=== PATIENT | male | born 1980 | race Caucasian/White ===

== ENCOUNTER 2019-06-23 10:11 | Outpatient (CLI) | payer BC, SELFPAY ==
[2019-06-23 10:40] LABS: Alanine Aminotransferase 37 U/L (4-50); Albumin Level 4.4 g/dL (3.5-5.1); Alkaline Phosphatase 106 U/L (38-126); Aspartate Amino Transferase 26 U/L (17-59); Blood Urea Nitrogen 12 mg/dL (9-20); Calcium 9.2 mg/dL (8.4-10.2); Carbon Dioxide 24 mmol/L (22-30); Chloride 104 mmol/L (98-107); Cholesterol 156 mg/dL (0-200); Estimated Glomerular Filt Rate > 60; Glucose 104 mg/dL (75-110); HDL Direct 39 mg/dL; Potassium 4.1 mmol/L (3.4-5.0); Sodium 140 mmol/L (137-145); Triglycerides 167 mg/dL (<150)
[2019-06-23 10:50] LABS: LDL Cholesterol Direct 102 mg/dL
[2019-06-25 10:05] LABS: Testosterone Total 262 ng/dL (250-1100)
== END 2019-06-23 10:12 | disposition home or self-care (01) ==
LOC: ANHLAB 10:12
PROVIDERS: PCP Internal Medicine; Visit Provider Nurse Practitioner
DX: N52.9 Male erectile dysfunction, unspecified (principal); E78.5 Hyperlipidemia, unspecified
CPT/HCPCS: 36415; 80053; 80061; 84403

== ENCOUNTER 2019-06-27 13:06 | Outpatient (CLI) | payer BC, SELFPAY ==
[2019-07-02 10:02] LABS: Testosterone Total 302 ng/dL (250-1100)
== END 2019-06-27 13:07 | disposition home or self-care (01) ==
PROVIDERS: PCP Internal Medicine; Visit Provider Nurse Practitioner
DX: R79.89 Other specified abnormal findings of blood chemistry (principal)
CPT/HCPCS: 36415; 84403

== ENCOUNTER 2019-11-19 15:08 | Outpatient (CLI) | payer MEDICAID, SELFPAY ==
[2019-11-23 11:12] LABS: Testosterone Total 173 ng/dL (250-1100)
== END 2019-11-19 15:09 | disposition home or self-care (01) ==
PROVIDERS: PCP Internal Medicine; Visit Provider Internal Medicine
DX: R68.82 Decreased libido (principal)
CPT/HCPCS: 36415; 84403

== ENCOUNTER 2020-05-11 15:28 | Observation (INO) | payer OTHER, SELFPAY ==
[2020-05-11] VITALS (15 sets, daily range): BP systolic 133–181; BP diastolic 87–125; PULSE 64–110; RESP 11–23; TEMP 36.3–37.1; O2SAT 97–99; BMI 34.0
--- NOTE | ~2020-05-11 | XR_ITS ---
XR chest 1V portable DATE: 05/11/2020 15:49 INDICATION: Upper back pain. Left anterior chest pain. History of hypertension, myocardial infarction . TECHNIQUE: Portable AP chest on 05/11/2020 at 1551 hours COMPARISON: PA and lateral chest on 01/06/2016 FINDINGS: Heart size appears within normal range. Is mild aortic unfolding. No hilar or mediastinal e nlargement is evident. No pulmonary infiltrate or consolidation, pleural effusion or pulmonary vascular congestion or pneumo thorax. IMPRESSION: No active cardiopulmonary disease Reviewed, dictated and finalized at location B. R PLUMBER
--- NOTE | ~2020-05-11 | NM_ITS ---
EXAMINATION: NM jasmin stress w perfusion DATE: 05/12/2020 11:04 INDICATION: Chest pain radiating to the left arm. TECHNIQUE: Rest images were obtained following intravenous administration of 10.3 mCi Tc99m tetrofosm in (Myoview). The patient was infused intravenously with Lexiscan (regadenoson). Then, 31.9 mCi Tc99m tetrofosmin (Myoview) was administered intravenously, and stress images were obtained. Data was ge nstructed into short axis and horizontal and vertical long axis SPECT images. Gated SPECT images were also obtained. COMPARISON: Chest CT 05/11/2020 FINDINGS: There is no definite reversible or fixed perfusion abnormality to suggest ischemia or infar ction. There is no segmental wall motion abnormality. Left ventricular ejection fraction measures > 70%. IMPRESSION: 1. No definite ischemia or infarct. 2. Normal left ventricular ejection fraction measuring >70%. Reviewed, dictated and finalized at location A. T THROWER
--- NOTE | ~2020-05-11 | CT_ITS ---
EXAMINATION: CTA chest EXAM DATE: 05/11/2020 17:09 INDICATION: Chest pain radiating to back. TECHNIQUE: Spiral CT angiogram of the chest following intravenous injection of 100 mL Omnipaque 350. Axial, coronal and sagittal images were reviewed. Coronal maximum intensity pixel images of chest r eviewed. Maximum intensity projection 3-D reconstructions of the arteries were created by the techno logist on dedicated workstation. The dose-length product (DLP) for this examination was 1002.66 mGy- cm. The exposure was tailored according to patient size (auto mA exposure control), and iterative re construction (ASIR) was used as additional dose reduction technique. There is no prior study for isaiah gallagher. FINDINGS: There is normal thoracic aortic caliber, no dissection or central pulmonary emboli. Mild ap ical paraseptal emphysema. The lungs are clear. There are no pleural or pericardial effusions. Tr acheobronchial tree is patent. There is no mediastinal, hilar or axillary lymphadenopathy. There is no pneumothorax. Heart normal in size. No evidence of coronary arterial calcification. Upper abdomen is unremarkable. There is thoracic spondylosis without osteoblastic or osteolytic lesions i dentified. IMPRESSION: 1. Unremarkable CT angiogram chest exam. Reviewed, dictated and finalized at location A. ER BIT
--- NOTE | 2020-05-11 15:40 | ECG_ITS ---
Measurements Intervals [place] Rate: 101 P: 9 SC: 141 QRS: -9 QRSD: 114 T: 0 QT: 339 QTc: 441 Interpretive Statements SINUS TACHYCARDIA MINIMAL Q WAVES- INFERIOR LEADS BORDERLINE ST-T WAVE ABNORMALITY- INF/LAT LEADS BORDERLINE ECG Electronically Signed On 05-11-2020 16:08:26 ASSISTANT SALES MANAGER by Dilan Smith D.O.
--- NOTE | 2020-05-11 15:45 | ED.GENADULT ---
HPI - General Adult General Chief complaint: Chest Pain Stated complaint: chest, back pain Time Seen by Provider: 05/11/20 15:32 Source: patient History of Present Illness HPI narrative: Patient is a 39 y/o male complaining of left sided chest pain starting about 6 hours at 9:30 AM. He describes his chest pain as an elephant sitting there. He rates his pain as 8/10. There is no pain radiation. He states that breathing makes his pain worse. He also has been having back pain for over 1 month. Related Data Home Medications Medication Instructions Recorded Confirmed albuterol sulfate 90 mcg/actuation 2 puff INHALATION Q4-6H PRN gm 05/29/19 05/11/20 aerosol inhaler aspirin 81 mg tablet,delayed 81 mg PO DAILY 05/29/19 05/11/20 release clopidogrel 75 mg tablet 75 mg PO DAILY 05/29/19 05/11/20 ergocalciferol (vitamin D2) 1,250 50,000 unit PO WEEKLY 06/24/19 05/11/20 mcg (50,000 unit) capsule beclomethasone dipropionate 40 mcg INHALATION DIRECTED PRN 05/11/20 05/11/20 carvedilol 25 mg PO BID 05/11/20 05/11/20 hydrochlorothiazide 12.5 mg PO DAILY 05/11/20 05/11/20 multivitamin 1 tablet PO DAILY 05/11/20 05/11/20 phentermine 37.5 mg PO DAILY 05/11/20 05/11/20 spironolactone 25 mg PO DAILY 05/11/20 05/11/20 Allergies Allergy/AdvReac Type Severity Reaction Status Date / Time Penicillins Allergy Unknown Rash Verified 05/11/20 15:33 Review of Systems Constitutional: Constitutional: Denies chills, Denies fever(s), Denies headache(s) and Denies weakness Eyes: Eyes: Denies blurry vision ENT: Denies headache(s) and Denies neck pain Cardiovascular: Cardiovascular: Reports chest pain and Denies dyspnea Respiratory: Respiratory: Denies cough and Denies dyspnea Gastrointestinal: Gastrointestinal: Denies abdominal pain, Denies diarrhea, Denies nausea and Denies vomiting Genitourinary: Genitourinary: Denies hematuria and Denies dysuria Musculoskeletal: Musculoskeletal: Reports back pain and Denies neck pain Neurologic: Denies headache(s) and Denies weakness PMFSH Past Medical History Medical History (Updated 05/16/20 @ 07:27 by Cassandra Dye MD) History of CA (myocardial infarction) Hyperlipidemia SARAH (obstructive sleep apnea) (01/20/19) Family History Family History Mother Patient's mother is in good health Father Patient's father is in good health Social History Social History Years smoked: 30 Smoking status: Former smoker Tobacco type: cigarettes Smoking end date: 05/07/15 Alcohol intake: never Substance use: never Spiritual care concerns: No Exam Const: General: no acute distress and well developed Orientation/consciousness: oriented to person, oriented to place, oriented to time and patient oriented x3 HENMT: Head: normocephalic Ears: external ears normal General nose exam: Normal external nose present Eyes: General: appearance normal, both eyes and all related structures Conjunctivae: conjunctivae normal Neck: Neck: normal visual inspection and full ROM Chest: Chest palpation & inspection: normal inspection of the chest and no tenderness Resp: Effort & Inspection: normal respiratory effort Auscultation: clear to auscultation bilaterally Cardio: Rate: regular rate Rhythm: regular rhythm GI: GI Palp: No abdominal tenderness and Yes Soft to palpation Skin: General skin exam: normal color and turgor normal Neuro: General: oriented to person, oriented to place, oriented to time and patient oriented x3 Cognition (Neuro): normal cognition Extrem: General: normal to inspection, full ROM and no pedal edema Psych: Appearance: grossly normal Mental Status: mental status grossly normal Affect: normal affect Course Consultations Consultation #1: Discussed with Dr. Smith, who agrees to admit. Date: 05/11/20 Time: 17:02 Vital Signs Vital signs: Vital Signs Pulse R
[2020-05-11 15:49] LABS: Basophils Percent Auto 0.4 % (0.2-1.2); Eosinophils Absolute Auto 0.1 K/mm3 (0-0.3); Eosinophils Percent Auto 1.1 % (0-4.4); Hematocrit 47.4 % (42.0-52.0); Hemoglobin 16.4 g/dL (14.0-18.0); Immature Granulocyte Absolute 0.04 K/mm3 (0.00-0.031); Immature Granulocyte Percent A 0.4 % (0-0.5); Lymphocytes Absolute Auto 1.85 K/mm3 (0.9-3.2); Lymphocytes Percent Auto 16.5 % (18.3-44.2); Mean Corpuscular HGB Conc 34.6 g/dl (32-36); Mean Corpuscular Hemoglobin 29.1 pg (26-34); Mean Platelet Volume 9.9 fl (7.4-10.4); Monocytes Absolute Auto 0.6 K/mm3 (0.1-0.6); Monocytes Percent Auto 5.4 % (2.6-8.5); Neutrophils Absolute Auto 8.6 K/mm3 (1.3-6.7); Neutrophils Percent Auto 76.2 % (45.5-73.1); Platelet Count Result 287 k/mm3 (150-375); Red Blood Count 5.64 M/mm3 (4.6-6.20); Red Cell Distribution Width 13.2 % (11.5-14.5); White Blood Count 11.2 K/mm3 (4.5-10.0)
[2020-05-11] MEDS: METOPROLOL TARTRATE 50 MG TAB PO (15:59)
[2020-05-11 16:00] LABS: Alanine Aminotransferase 28 U/L (4-50); Albumin Level 4.4 g/dL (3.5-5.1); Alkaline Phosphatase 94 U/L (38-126); Anion Gap 13 mmol/L (8-16); Aspartate Amino Transferase 30 U/L (17-59); Bilirubin,Total 1.6 mg/dL (0.2-1.3); Blood Urea Nitrogen 24 mg/dL (9-20); Calcium 9.7 mg/dL (8.4-10.2); Carbon Dioxide 19 mmol/L (22-30); Chloride 104 mmol/L (98-107); Estimated CRCL calculation 109 ml/min; Estimated Glomerular Filt Rate > 60; Glucose 91 mg/dL (75-110); Potassium 3.6 mmol/L (3.4-5.0); Sodium 136 mmol/L (137-145)
[2020-05-11 16:12] LABS: Troponin I < 0.012 ng/mL (0.000-0.034)
[2020-05-11 16:31] LABS: D Dimer 0.32 ug/mL (<0.48)
--- NOTE | 2020-05-11 16:50 | PC.NURSE ---
Called to patient room, pt reports sudden onset of left upper chest/shoulder pain radiating down his left arm. States this is the pain that brought him in. EKG being done and Dr. Dye made aware. Pt's pain gone by the time EKG completed and is only having his chronic back pain at present.
--- NOTE | 2020-05-11 16:50 | ECG_ITS ---
Measurements Intervals [place] Rate: 86 P: -10 [place]: 139 QRS: 14 QRSD: 117 T: 18 QT: 365 QTc: 437 Interpretive Statements SINUS RHYTHM CONSIDER INFERIOR INFARCT, AGE INDETERMINATE BASELINE ARTIFACT- V5 ABNORMAL ECG Electronically Signed On 05-11-2020 18:08:34 MANUFACTURING TECH by Dilan Smith D.O.
--- NOTE | 2020-05-11 17:27 | PC.NURSE ---
Planning to admit patient, but no bed available at this time. Pt updated on delay.
--- NOTE | 2020-05-11 18:29 | PC.NURSE ---
Pt status unchanged. Preparing to collect 3 hr troponin as ordered. Pt denies further instances of chest pain.
--- NOTE | 2020-05-11 18:43 | PC.NURSE ---
Dr. Smith at bedside for exam. Request something for pt c/o back pain. Dr. Smith gives v.o. for ibuprofen po.
--- NOTE | 2020-05-11 18:45 | PC.NURSE ---
BOBBY faxed to [facility] in [facility].
[2020-05-11] MEDS: IBUPROFEN 400 MG TABLET 800 MG PO (18:49)
--- NOTE | 2020-05-11 18:59 | PM.CNCAR ---
Assessment and Plan Assessment and plan (1) Hyperlipidemia: Code(s): E78.5 - Hyperlipidemia, unspecified Status: Acute Assessment and Plan: Continue home medication of Atorvastatin and Zetia. (2) Essential (primary) hypertension: Code(s): I10 - Essential (primary) hypertension Status: Acute Assessment and Plan: Continue home medication of Amlodipine, Valsartan/HCTZ. (3) CAD (coronary artery disease): Code(s): I25.10 - Atherosclerotic heart disease of [place] coronary artery without angina pectoris Status: Acute Assessment and Plan: Continue home medication of aspirin, Plavix. (4) Obesity: Code(s): E66.9 - Obesity, unspecified Status: Acute (5) Strain of muscle, fascia and tendon of lower back, subsequent encounter: Code(s): S39.012D - Strain of muscle, fascia and tendon of lower back, subsequent encounter Status: Acute Assessment and Plan: Ibuprofen 800 mg BID. Would recommend chiropractic evaluation as an outpatient unless his PCP can provide OMM. (6) Chest pain: Code(s): R07.9 - Chest pain, unspecified Status: Acute Assessment and Plan: Likely due to muscle strain, exacerbated from lower back pain. Thus far first troponin and EKG are unremarkable. Will r/o for KS with 2 more sets of troponins. If negative, will obtain Lexiscan myoview stress test in AM in light of his KS history with 3 stents. History of Present Illness History of Present Illness Consult date/time: 05/11/20 18:59 Reason for admit: Chest pain. 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 Jessee Mohan and PCP is Dr. Randall presents to ER with chest pain. I am seeing him in ED. He has a history of KS with stent to RCA by Dr. Valladares at [facility] in 2012 and subsequent stents in left and right PDA [place] [address] Mohan, hypertension, dyslipidemia, prior SARAH, remote smoking. 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 He has chronic lower-mid back pain since Jan 2020 from a work incident. Since then he has intermittent severe back pain for which he takes Ibruprofen. His chest pain is described as an elephant sitting on it and it is intermittent and worse when his back pain gets worse today. Currently no chest pain. He can walk at least a mile without any problems prior to Jan 2020. Denies orthopnea, PND, edema, palpitations, dizziness. Reason For Visit: Chest Pain Review of Systems Review of Systems: All systems reviewed & are unremarkable except as noted in HPI and below Constitutional: Constitutional: Reports as per HPI, Denies chills and Denies fever(s) Cardiovascular: Cardiovascular: Reports as per HPI, Reports chest pain, Denies leg edema and Denies lightheadedness Respiratory: Respiratory: Reports as per HPI and Denies dyspnea Gastrointestinal: Gastrointestinal: Reports as per HPI and Denies abdominal pain Genitourinary: Genitourinary: Reports as per HPI and Denies dysuria Musculoskeletal: Musculoskeletal: Reports as per HPI, Reports back pain and Reports stiffness Neurologic: Reports as per HPI, Denies dizziness and Denies syncope [facility] Past Medical History Medical History (Updated 05/11/20 @ 19:09 by Dilan Smith DO) History of KS (myocardial infarction) Hyperlipidemia SARAH (obstructive sleep apnea) (01/20/19) Family History Family History Mother Patient's mother is in good health Father Patient's father is in good health Social History Social History Smoking status: Former smoker Smoking end date: 05/07/15 Alcohol intake: never Meds Home Medications and Allergies Home Medications Medication Instructions Recorded Confirmed Type albuterol sulfate 90 mcg/actuation 2 puff INHALATION Q4-6H PRN 05/29/19
[2020-05-11 19:05] LABS: Troponin I < 0.012 ng/mL (0.000-0.034)
--- NOTE | 2020-05-11 19:20 | ADMGEN ---
This patient, Jorge Guzman, was admitted to [facility]. Patient/family oriented to hospital policies and general routines including ID bracelet, bed and alarms, visiting hours, pain management, procedures, bathroom and other care routines, personal items, smoking policy, room service/diet, and visiting hours. Information on how to activate the Rapid Response Team has been discussed. Patient/Family are encouraged to report perceived risks to care and to ask questions if they do not understand what they are told or what they should do.
[2020-05-11] MEDS: carvediloL 25 MG TABLET PO (21:31)
[2020-05-11 22:01] LABS: Troponin I < 0.012 ng/mL (0.000-0.034)
[2020-05-12] VITALS: BP 112/72; PULSE 61; PULSE 64; PULSE 65; RESP 15; RESP 16; TEMP 36.1; O2SAT 97
--- NOTE | 2020-05-12 | EST_ITS ---
Patient Info Name: Jorge Guzmna Age: 39 years : 1980 Gender: Male Ht: 71 in Wt: 239 lbs BSA: 2.36 m2 Exam Date: 05/12/2020 10:09 AM Patient Status: Inpatient Admit Date: 05/11/2020 Staff Ordering Physician: Dilan Smith DO Attending Provider: Dilan Smith DO Exercise Technologist: Roberto Norton RDCS, RT Exercise Physician: Dilan Smith DO Exam Type: CA stress jasmin w NM Study Info A regadenoson stress test was performed. Summary 1. 1. Negative lexiscan stress test for ischemic ST changes by ECG criteria. 2. 2. Stable hemodynamics throughout the test. 3. 3. Nuclear scan to follow and will be reported separately. Please correlate with it. 4. 4. Patient informed of the above results. Protocol: Lexiscan Stress ECG Details Stage: REST Duration (min): 1 min : 53 sec HR (bpm): 59 SBP (mmHg): 147 DBP (mmHg): 91 Stage: REST Duration (min): 13 min : 1 sec HR (bpm): 61 SBP (mmHg): 147 DBP (mmHg): 91 Stage: STAGE 1 Duration (min): 0 min : 59 sec HR (bpm): 66 SBP (mmHg): 96 DBP (mmHg): 61 Stage: RECOVERY Duration (min): 1 min : 0 sec HR (bpm): 81 SBP (mmHg): 96 DBP (mmHg): 61 Stage: RECOVERY Duration (min): 2 min : 0 sec HR (bpm): 79 SBP (mmHg): 96 DBP (mmHg): 61 Stage: RECOVERY Duration (min): 3 min : 0 sec HR (bpm): 75 SBP (mmHg): 96 DBP (mmHg): 60 Stage: RECOVERY Duration (min): 3 min : 42 sec HR (bpm): 72 SBP (mmHg): 105 DBP (mmHg): 60 Rest HR: 61 bpm Peak HR: 83 bpm Rest Sys BP: 147 mmHg Peak Sys BP: 105 mmHg Max Pred HR: 180 bpm % Max Pred HR: 46 % Target HR: 153 bpm Max RPP: 8,715 bpm*mmHg Termination Reason: Completed protocol Cardiac Symptoms: Shortness of breath, Baseline chest pain Total Time: 1 min : 0 sec Rest Malcolm BP: 91 mmHg Peak Malcolm BP: 60 mmHg Total Dose: 0.4 mg Resting ECG Sinus rhythm. Stress ECG No ST changes. Arrhythmias None. Report Signatures
[2020-05-12 02:00] VITALS: PULSE 66
[2020-05-12 04:00] VITALS: BP 111/78; PULSE 60; PULSE 61; RESP 13; TEMP 36.2; O2SAT 98
[2020-05-12 06:00] VITALS: PULSE 55
[2020-05-12 08:00] VITALS: BP 134/80; PULSE 60; RESP 14; TEMP 36.4; O2SAT 98
[2020-05-12] MEDS: CLOPIDOGREL BISULFATE 75 MG TABLET PO (09:00)
[2020-05-12] MEDS: MULTIVITAMINS THERAPEUTIC TAB (*BKC) 1 TABLET PO (09:00)
[2020-05-12 09:01] VITALS: PULSE 60
[2020-05-12] MEDS: carvediloL 25 MG TABLET PO (09:01)
[2020-05-12] MEDS: IBUPROFEN 400 MG TABLET 800 MG PO (09:01)
[2020-05-12] MEDS: amLODIPine BESYLATE 5 MG TABLET PO (09:01)
[2020-05-12] MEDS: SPIRONOLACTONE 25 MG TABLET PO (09:01)
[2020-05-12] MEDS: hydroCHLOROthiazide 12.5 MG CAPSULE PO (09:01)
[2020-05-12] MEDS: ASPIRIN 81 MG ENTERIC TABLET PO (09:01)
[2020-05-12] MEDS: SERTRALINE HCL 50 MG TABLET 100 MG PO (09:04)
--- NOTE | 2020-05-12 10:31 | PM.PNCARD ---
Progress Note: A&P Assessment and Plan (1) Hyperlipidemia: Code(s): E78.5 - Hyperlipidemia, unspecified Status: Acute Assessment and Plan: Continue home medication. (2) Essential (primary) hypertension: Code(s): I10 - Essential (primary) hypertension Status: Acute Assessment and Plan: Stable. Continue home medication. (3) CAD (coronary artery disease): Code(s): I25.10 - Atherosclerotic heart disease of [place] coronary artery without angina pectoris Status: Acute Assessment and Plan: Continue home medication of aspirin, Plavix. (4) Obesity: Code(s): E66.9 - Obesity, unspecified Status: Acute (5) Strain of muscle, fascia and tendon of lower back, subsequent encounter: Code(s): S39.012D - Strain of muscle, fascia and tendon of lower back, subsequent encounter Status: Acute Assessment and Plan: Ibuprofen 800 mg BID. Would recommend chiropractic evaluation as an outpatient unless his PCP can provide OMM. (6) Chest pain: Code(s): R07.9 - Chest pain, unspecified Status: Acute Assessment and Plan: Likely due to muscle strain, exacerbated from lower back pain. TN ruled out by series of troponins and EKG. Lexiscan myoview stress test in AM in light of his TN history with 3 stents. Subjective Date/time seen: 05/12/20 10:31 Reports low back pain 9/10 in intensity off and on and left chest pain less often. No sob. Exam Const: General: cooperative, healthy appearing and comfortable Nutritional Appearance: obese Resp: Auscultation: clear to auscultation bilaterally, no crackles, no rales, no rhonchi and no wheezes Cardio: Jugular venous distension: no JVD Rate: regular rate Rhythm: regular rhythm Heart sounds: no murmurs Peripheral pulses: dorsalis pedis present GI: GI Palp: No abdominal tenderness and Yes Soft to palpation Back/Spine/Pelvis: Back: back tenderness (tissue texture changes in lumbar to lower thoracic spinal muscles) Neuro: General: oriented to person, oriented to place and oriented to time Extrem: Right lower extremity: no edema Left lower extremity: no edema Objective Data Vital Signs Vital Signs: Vital Signs - 24 hr 05/11/20 15:30 05/11/20 15:32 05/11/20 15:34 Temperature 98.1 F Pulse Rate 110 H 107 H 108 H Respiratory Rate 17 11 L 15 Blood Pressure 181/125 H 181/125 H Pulse Oximetry 97 97 97 05/11/20 15:47 05/11/20 15:59 05/11/20 16:00 Temperature Pulse Rate 100 106 H Respiratory Rate 23 H Blood Pressure 134/102 H Pulse Oximetry 98 98 05/11/20 16:02 05/11/20 16:45 05/11/20 17:13 Temperature Pulse Rate 98 92 96 Respiratory Rate 14 18 Blood Pressure 150/110 H Pulse Oximetry 97 98 05/11/20 17:30 05/11/20 18:18 05/11/20 19:11 Temperature 98.7 F Pulse Rate 80 72 78 Respiratory Rate 16 19 18 Blood Pressure 133/87 143/95 H Pulse Oximetry 99 99 99 05/11/20 20:00 05/11/20 21:31 05/11/20 22:00 Temperature 97.3 F L Pulse Rate 72 71 64 Respiratory Rate 19 Blood Pressure 140/97 H Pulse Oximetry 97 05/12/20 00:00 05/12/20 02:00 05/12/20 04:00 Temperature 97.0 F L 97.2 F L Pulse Rate 65 66 60 Respiratory Rate 15 13 Blood Pressure 112/72 111/78 Pulse Oximetry 97 98 05/12/20 06:00 05/12/20 08:00 05/12/20 09:01 Temperature 97.6 F Pulse Rate 55 L 60 60 Respiratory Rate 14 Blood Pressure 134/80 Pulse Oximetry 98 Meds/Results Medications: Active Medications Generic Name Dose Route Start Last Admin Trade Name Freq PRN Reason Stop Dose Admin Albuterol 2 puff 05/11/20 19:19 Albuterol Sulfate (*Sp) Aerosol 1 Puff INHALATION Q4-6H PRN Shortness Of Breath Amlodipine Besylate 5 mg 05/12/20 09:00 05/12/20 09:01 Amlodipine Besylate 5 Mg Tablet PO 5 mg DAILY KYM Administration Aspirin 81 mg 05/12/20 09:00 05/12/20 09:01 Aspirin 81 Mg Enteric Tablet PO 81 mg DAILY KYM Admini
--- NOTE | 2020-05-12 12:09 | PC.NURSE ---
1200-pt given D/C orders and instructions. Questions answered and verbalized understanding. AOx4. PIV removed intact. Ambulated per request to waiting vehicle. No distress noted or verbalized at time of departure.
--- NOTE | 2020-05-12 16:28 | PM.DS ---
DS: Admitting Diagnosis Admitting Diagnosis Admitting Diagnosis: Chest pain DS: Summary Hospital Course Reason for hospitalization: Chest pain Hospital Course: 39 yr old man presented with chest pain and back pain. He was ruled out for IN by 3 sets of troponins and EKG. He continued to have chronic lower back pain from a work injury since Jan 2020. His chest pains were intermittent but correlated with recurrence of lower back pain. He had Lexiscan myoview stress test and this was normal. He will be discharged home to f/u with his PCP, Dr. Randall in 1 week for management of musculoskeletal pains. Continue same home medications with no change. Disposition: Home. Diet: Heart healthy. Activity: As tolerated. Status at Discharge Functional status at discharge: independent ambulation Time Spent with Patient Time attestation: Total time spent providing and/or coordinating discharge services: Time spent: Less than 30 minutes DS: Data Data Completed and Pending Labs on day of discharge: Labs from last 24 hours 05/11/20 05/11/20 05/11/20 21:30 18:35 15:43 D-Dimer 0.32 Troponin I < 0.012 < 0.012 Discharge Plan Discharge Discharging Clinician: Dilan Smith Patient Disposition: Home, Self-Care Activity: as tolerated Diet: heart healthy Patient Instructions: Antibiotic Form, Clopidogrel (By mouth) Stand Alone Forms: General Discharge Information Follow-up/Referrals: Gaston Randall, [Primary Care Provider] - 1 Week Discharge Medications: Continued clopidogrel 75 mg tablet 75 mg PO DAILY RF: 0 aspirin [Aspir-81] 81 mg tablet,delayed release (DR/EC) 81 mg PO DAILY RF: 0 albuterol sulfate 90 mcg/actuation HFA aerosol inhaler 2 puff INHALATION Q4-6H PRN (Reason: Shortness Of Breath) RF: 0 ergocalciferol (vitamin D2) 1,250 mcg (50,000 unit) capsule 50,000 unit PO WEEKLY RF: 0 sertraline 100 mg tablet 100 mg PO DAILY Qty: 30 RF: 4 amlodipine 5 mg tablet 5 mg PO DAILY Qty: 30 RF: 5 multivitamin Tablet 1 tablet PO DAILY RF: 0 carvedilol 25 mg Tablet 25 mg PO BID RF: 0 phentermine 37.5 mg Tablet 37.5 mg PO DAILY RF: 0 spironolactone 25 mg Tablet 25 mg PO DAILY RF: 0 beclomethasone dipropionate 40 mcg/actuation Aerosol 40 mcg INHALATION DIRECTED PRN (Reason: Shortness Of Breath) RF: 0 hydrochlorothiazide 12.5 mg Tablet 12.5 mg PO DAILY RF: 0 atorvastatin 40 mg tablet See Rx Instructions .ROUTE .COMPLEX Qty: 90 RF: 0 Date of admission: 05/11/20 17:03 Primary Care Provider: Gaston Randall Admitting Provider: Dilan Smith Attending physician on admission: Dilan Smith Condition: Stable
== END 2020-05-12 12:00 | disposition home or self-care (01) ==
LOC: ANHED 16:06 → ANHCPC 19:11
PROVIDERS: Admitting Provider Internal Medicine Cardiovascular Disease; Emergency Provider Emergency Medicine; PCP Internal Medicine; Visit Provider Internal Medicine Cardiovascular Disease
DX: R07.89 Other chest pain (principal); G89.29 Other chronic pain; I25.2 Old myocardial infarction; S39.012D Strain of muscle, fascia and tendon of lower back, subsequent encounter; E78.5 Hyperlipidemia, unspecified; E66.9 Obesity, unspecified; G47.33 Obstructive sleep apnea (adult) (pediatric); I10 Essential (primary) hypertension; I25.10 Atherosclerotic heart disease of native coronary artery without angina pectoris; Z68.33 Body mass index [BMI] 33.0-33.9, adult; Z87.891 Personal history of nicotine dependence; Z95.5 Presence of coronary angioplasty implant and graft
CPT/HCPCS: 36415; 71045; 71275; 78452; 80053; 84484; 85025; 85380; 93005; 93017; 99285; A9270; A9502; G0378; G0379; J2785; Q9967

== ENCOUNTER 2020-11-16 08:48 | Outpatient (CLI) | payer OTHER, SELFPAY ==
[2020-11-16 09:26] LABS: Alanine Aminotransferase 31 U/L (4-50); Albumin Level 4.5 g/dL (3.5-5.1); Alkaline Phosphatase 82 U/L (38-126); Anion Gap 11 mmol/L (8-16); Aspartate Amino Transferase 26 U/L (17-59); Bilirubin,Total 1.9 mg/dL (0.2-1.3); Blood Urea Nitrogen 22 mg/dL (9-20); Calcium 9.5 mg/dL (8.4-10.2); Carbon Dioxide 23 mmol/L (22-30); Chloride 104 mmol/L (98-107); Cholesterol 195 mg/dL (0-200); Estimated Glomerular Filt Rate > 60; Glucose 97 mg/dL (75-110); HDL Direct 51 mg/dL; Potassium 3.7 mmol/L (3.4-5.0); Sodium 138 mmol/L (137-145); Triglycerides 127 mg/dL (<150)
[2020-11-16 09:39] LABS: LDL Cholesterol Direct 99 mg/dL
[2020-11-19 15:01] LABS: Testosterone Total 401 ng/dL (250-1100)
== END 2020-11-16 08:49 | disposition home or self-care (01) ==
LOC: ANHLAB 08:50
PROVIDERS: PCP Internal Medicine; Visit Provider Internal Medicine
DX: E78.5 Hyperlipidemia, unspecified (principal); I10 Essential (primary) hypertension; E29.1 Testicular hypofunction; Z79.899 Other long term (current) drug therapy
CPT/HCPCS: 36415; 80053; 80061; 84403

== ENCOUNTER 2021-05-27 12:25 | Emergency (ER) | payer BC, OTHER, SELFPAY ==
--- NOTE | ~2021-05-27 | XR_ITS ---
EXAMINATION: XR chest 1V portable DATE: 05/27/2021 13:33 INDICATION: Cough TECHNIQUE: frontal view of the chest was obtained. COMPARISON: Chest radiograph dated 05/11/2020 FINDINGS: The lungs remain clear with no focal airspace opacities, pulmonary edema, pleural effusion or pneumot horax. The cardiomediastinal silhouette is normal. IMPRESSION: 1. No acute cardiopulmonary disease. Reviewed, dictated and finalized at location A. LABOR DELIVERY
[2021-05-27 12:27] VITALS: BP 191/110; PULSE 76; RESP 18; TEMP 36.5; O2SAT 99
[2021-05-27 12:42] VITALS: BP 165/118; PULSE 81; RESP 18; O2SAT 100
[2021-05-27 12:54] VITALS: O2SAT 100
--- NOTE | 2021-05-27 13:18 | ECG_ITS ---
Measurements Intervals [place] Rate: 72 P: 2 [place]: 146 QRS: 10 QRSD: 106 T: 20 QT: 393 QTc: 431 Interpretive Statements SINUS RHYTHM DELAYED PRECORDIAL R/S TRANSITION BASELINE WANDER- II, III, AVF BORDERLINE ECG Electronically Signed On 05-27-2021 14:09:10 FISH FARM MANAGER by Dilan Smith D.O.
[2021-05-27] MEDS: ACETAMINOPHEN 500 MG TABLET 1000 MG PO (14:02)
--- NOTE | 2021-05-27 14:22 | ED.GENADULT ---
HPI - General Adult General Chief complaint: Weakness Stated complaint: lethargy, chills Time Seen by Provider: 05/27/21 12:51 Source: patient Mode of arrival: ambulatory History of Present Illness HPI narrative: 41-year-old male with a history of CAD and hypertension presents to the ED with a 10-day history of generalized fatigue, headache, mild cough, loose stool, and intermittent dizziness. He states several coworkers have recently been diagnosed with COVID-19. Patient received the COVID-19 booster vaccine shortly prior to symptom onset. No recent history of documented fever, visual changes, sputum production, shortness of breath, or abdominal pain. He has been using [id number] analgesics with minimal relief. Related Data Home Medications Medication Instructions Recorded Confirmed aspirin 81 mg tablet,delayed 81 mg PO DAILY 05/29/19 12/14/20 release carvedilol 25 mg PO BID 05/11/20 12/14/20 hydrochlorothiazide 12.5 mg PO DAILY 05/11/20 12/14/20 topiramate 100 mg tablet 100 mg PO DAILY 12/14/20 12/14/20 Allergies Allergy/AdvReac Type Severity Reaction Status Date / Time Penicillins Allergy Unknown Rash Verified 05/27/21 12:30 Review of Systems Review of Systems: CONSTITUTIONAL: Fatigue EYES: Denies visual changes, redness, or discharge. ENT: Denies rhinorrhea, congestion, sore throat, or otalgia. CARDIOVASCULAR: Denies chest pain, palpitations, or edema. RESPIRATORY: Cough GASTROINTESTINAL: Denies abdominal pain, nausea, vomiting, or diarrhea. GENITOURINARY: Denies dysuria or hematuria. SKIN: Denies rash or itching. MUSCULOSKELETAL: Denies back pain, joint pain, or myalgia. NEUROLOGIC: Headache PSYCHIATRIC: Denies anxiety or depression. All systems reviewed & are unremarkable except as noted in HPI and below PMFSH Past Medical History Medical History (Updated 05/27/21 @ 14:52 by Carlos Bunn PA-C) History of [place] (myocardial infarction) Hyperlipidemia SARAH (obstructive sleep apnea) (01/20/19) Family History Family History Mother Patient's mother is in good health Father Patient's father is in good health Social History Social History Years smoked: 26 Smoking status: Former smoker Tobacco type: cigarettes Second hand tobacco smoke exposure: Yes Alcohol intake: current Drinks per week: 1 Alcohol use details: Social Substance use: never Spiritual care concerns: No Exam Narrative: GENERAL: Well-appearing, well-nourished, and in no acute distress. HEAD: Normocephalic, atraumatic. EYES: PERRLA and EOMI. ENT: Nares clear, no rhinorrhea or epistaxis. Mucous membranes moist. Oropharynx without tonsillar hypertrophy exudate or other lesions. Bilateral TMs pearly payan nonbulging NECK: Supple. No adenopathy or masses. No carotid bruits or JVD CHEST: Clear to auscultation. No respiratory distress. No wheezes rales or rhonchi HEART: Regular rate and rhythm. No murmur heard. Normal peripheral pulses. ABDOMEN: Soft, nontender, nondistended, normal active bowel sounds. EXTREMITIES: Normal range of motion. No edema. SKIN: Warm, dry, no rash. NEURO: No focal deficits. Alert and oriented x3. PSYCH: Normal mood and affect. Course Vital Signs Vital signs: Vital Signs Temperature 97.7 F 05/27/21 12:27 Pulse Rate 76 05/27/21 12:27 Respiratory Rate 18 05/27/21 12:27 Blood Pressure 191/110 H 05/27/21 12:27 Pulse Oximetry 99 05/27/21 12:27 Temperature 97.7 F 05/27/21 12:27 Pulse Rate 81 05/27/21 12:42 Respiratory Rate 18 05/27/21 12:42 Blood Pressure 165/118 H 05/27/21 12:42 Pulse Oximetry 100 05/27/21 12:54 Medical Decision Making MDM Narrative Medical decision making narrative: Patient presents to the ED with symptoms most in keeping with viral syndrome/COVID-19. He has received the COVID-19 vaccine. We will follow COVID-
[2021-05-27 15:10] VITALS: BP 167/117; PULSE 73; RESP 18; O2SAT 99
[2021-05-27 21:56] LABS: SARS-CoV-2 RNA PCR Negative
== END 2021-05-27 15:12 | disposition home or self-care (01) ==
PROVIDERS: Physician Assistant; Emergency Provider Emergency Medicine; PCP Internal Medicine
DX: B34.9 Viral infection, unspecified (principal); Z20.822 Contact with and (suspected) exposure to COVID-19; I25.10 Atherosclerotic heart disease of native coronary artery without angina pectoris; I10 Essential (primary) hypertension; Z79.82 Long term (current) use of aspirin; I25.2 Old myocardial infarction; G47.33 Obstructive sleep apnea (adult) (pediatric); E78.5 Hyperlipidemia, unspecified; Z87.891 Personal history of nicotine dependence
CPT/HCPCS: 71045; 93005; 99283; A9270; C9803; U0003; U0005

== ENCOUNTER 2021-06-13 22:56 | Emergency (ER) | payer BC, OTHER, SELFPAY ==
--- NOTE | ~2021-06-13 | XR_ITS ---
EXAMINATION: XR knee RT 3V DATE: 06/13/2021 23:43 INDICATION: Right knee pain. Fall. TECHNIQUE: 3 views of right knee on 4 radiographs were obtained. COMPARISON: None. FINDINGS: Bone alignment is normal. No fracture. Joint spaces are well maintained. There is no knee j oint effusion. IMPRESSION: 1. Normal right knee. Reviewed, dictated and finalized at location E. GER LANDSCAPE IMPRESSION: 1. Normal right knee.
[2021-06-13 23:15] VITALS: BP 158/120; PULSE 78; RESP 16; TEMP 36.4; O2SAT 100
--- NOTE | 2021-06-13 23:40 | ED.GENADULT ---
HPI - General Adult General Chief complaint: Extremity Injury, Lower Stated complaint: R knee pain, fell on ice Time Seen by Provider: 06/13/21 23:12 Source: patient and RN notes reviewed History of Present Illness HPI narrative: Patient is a 41 y/o male complaining of right knee pain after he fell on it today. He describes his pain as sharp and rates it as 9/10. He took Ibuprofen which did not help. He denies any other injury. He states that his right knee gave out 2 days ago, but he did not fall at that time. Related Data Home Medications Medication Instructions Recorded Confirmed aspirin 81 mg tablet,delayed 81 mg PO DAILY 05/29/19 12/14/20 release carvedilol 25 mg PO BID 05/11/20 12/14/20 hydrochlorothiazide 12.5 mg PO DAILY 05/11/20 12/14/20 topiramate 100 mg tablet 100 mg PO DAILY 12/14/20 12/14/20 Allergies Allergy/AdvReac Type Severity Reaction Status Date / Time Penicillins Allergy Unknown Rash Verified 05/27/21 12:30 Review of Systems Musculoskeletal: Musculoskeletal: Denies back pain, Denies neck pain and Reports other (right knee pain) FORMERLY [facility] Past Medical History Medical History (Updated 06/14/21 @ 00:09 by Cassandra Dye MD) History of [place] (myocardial infarction) Hyperlipidemia SARAH (obstructive sleep apnea) (01/20/19) Family History Family History Mother Patient's mother is in good health Father Patient's father is in good health Social History Social History Years smoked: 26 Smoking status: Former smoker Tobacco type: cigarettes Second hand tobacco smoke exposure: Yes Alcohol intake: current Drinks per week: 1 Alcohol use details: Social Substance use: never Spiritual care concerns: No Exam Const: General: no acute distress and well developed Orientation/consciousness: oriented to person, oriented to place, oriented to time and patient oriented x3 Extrem: General: normal to inspection, full ROM and no pedal edema Right lower extremity: knee Details: tenderness Psych: Appearance: grossly normal Mental Status: mental status grossly normal Affect: normal affect Course Vital Signs Vital signs: Vital Signs Temperature 36.4 C 06/13/21 23:15 Pulse Rate 78 06/13/21 23:15 Respiratory Rate 16 06/13/21 23:15 Blood Pressure 158/120 H 06/13/21 23:15 Pulse Oximetry 100 06/13/21 23:15 Temperature 36.4 C 06/13/21 23:15 Pulse Rate 78 06/13/21 23:15 Respiratory Rate 16 06/13/21 23:15 Blood Pressure 158/120 H 06/13/21 23:15 Pulse Oximetry 100 06/13/21 23:15 Medical Decision Making Vital Signs Vital Signs: Vital Signs Temperature 36.4 C 06/13/21 23:15 Pulse Rate 78 06/13/21 23:15 Respiratory Rate 16 06/13/21 23:15 Blood Pressure 158/120 H 06/13/21 23:15 Pulse Oximetry 100 06/13/21 23:15 Temperature 36.4 C 06/13/21 23:15 Pulse Rate 78 06/13/21 23:15 Respiratory Rate 16 06/13/21 23:15 Blood Pressure 158/120 H 06/13/21 23:15 Pulse Oximetry 100 06/13/21 23:15 Discharge Plan Discharge Clinical Impression: Knee pain, right Qualifiers: Chronicity: unspecified Qualified Code(s): M25.561 - Pain in right knee Hypertension Qualifiers: Hypertension type: unspecified Qualified Code(s): I10 - Essential (primary) hypertension Patient Disposition: Home, Self-Care Condition: Stable Instructions: Knee Pain (ED) Prescriptions: No Action aspirin [Aspir-81] 81 mg tablet,delayed release (DR/EC) 81 mg PO DAILY RF: 0 topiramate 100 mg tablet 100 mg PO DAILY RF: 0 atorvastatin 40 mg tablet 40 mg PO DAILY Qty: 90 RF: 2 carvedilol 25 mg Tablet 25 mg PO BID RF: 0 hydrochlorothiazide 12.5 mg Tablet 12.5 mg PO DAILY RF: 0 Follow-up/Referrals: Gaston Randall DO [Primary Care Provider] - 1 Week Stand Alone Forms: Work/School Release IP
[2021-06-14] MEDS: KETOROLAC (*BKC) 60 MG/2 ML VIAL IM (00:25)
== END 2021-06-14 01:30 | disposition home or self-care (01) ==
PROVIDERS: Emergency Provider Emergency Medicine; PCP Internal Medicine
DX: M25.561 Pain in right knee (principal); I10 Essential (primary) hypertension; I25.2 Old myocardial infarction; E78.5 Hyperlipidemia, unspecified; G47.33 Obstructive sleep apnea (adult) (pediatric); Z87.891 Personal history of nicotine dependence; Z79.82 Long term (current) use of aspirin
CPT/HCPCS: 73562; 96372; 99283; J1885

== ENCOUNTER 2021-07-20 08:28 | Outpatient (CLI) | payer BC, OTHER, SELFPAY ==
--- NOTE | ~2021-07-20 | MR_ITS ---
EXAMINATION: MR knee RT wo con DATE: 07/20/2021 09:59 INDICATION: Anterior right knee pain and swelling. Knee giving out. TECHNIQUE: Magnetic resonance imaging (MRI) of the right knee was performed without intravenous contr ast. Sequences included coronal PD-weighted FSE, coronal PD-weighted FS FSE, sagittal T2-weighted FS E, sagittal PD-weighted FS FSE and axial PD weighted fat saturated FSE. COMPARISON: None. FINDINGS: Medial compartment: Medial meniscus is normal. Shallow chondral fissuring along the anterior weightbearing medial femoral condyle. Subtle cartilage signal heterogeneity at the posterior weightbearing medial femoral condyle also suspicious for partial thickness fissuring. Lateral compartment: Lateral meniscus is normal. Articular cartilage is normal. Patellofemoral compartment: Likely full/near full-thickness chondral fissure at the central aspect. Lateral patellar facet with m ild underlying edema-like subarticular marrow signal change. Additional small regions of deep chondra l fissuring with subtle cortical irregularity at the inferior aspect of the medial and lateral trochl ea. Ligaments and tendons: Anterior and posterior cruciate ligaments are normal. The medial collateral ligament and fibular aniya ateral ligament complex are normal. The extensor mechanism is normal. The visualized medial and later al hamstring tendons as well as the iliotibial band are normal. Fluid: Physiologic amount of fluid in the joint space. No loose osteochondral bodies identified. Osseous/other: Normal marrow signal. No fracture or pathologic marrow replacing process. IMPRESSION: 1. Mild osteoarthritis with small regions of moderate grade chondromalacia along the weightbearing me dial femoral condyle and high-grade chondral malacia at the patellofemoral compartment. Reviewed, dictated and finalized at location A. IMPRESSION: 1. Mild osteoarthritis with small regions of moderate grade chondromalacia richi g the weightbearing medial femoral condyle and high-grade chondral malacia at t he patellofemoral compartment.
== END 2021-07-20 08:29 | disposition home or self-care (01) ==
LOC: ANHIMG 08:30
PROVIDERS: PCP Internal Medicine; Visit Provider Internal Medicine
DX: M17.11 Unilateral primary osteoarthritis, right knee (principal); M94.261 Chondromalacia, right knee
CPT/HCPCS: 73721

== ENCOUNTER 2021-10-07 09:16 | Outpatient (CLI) | payer BC, OTHER, SELFPAY ==
[2021-10-07 10:37] LABS: Alanine Aminotransferase 29 U/L (6-50); Albumin Level 4.6 g/dL (3.5-5.1); Alkaline Phosphatase 81 U/L (38-126); Anion Gap 8 mmol/L (8-16); Aspartate Amino Transferase 25 U/L (17-59); Bilirubin,Total 1.3 mg/dL (0.2-1.3); Blood Urea Nitrogen 18 mg/dL (9-20); Calcium 9.1 mg/dL (8.4-10.2); Carbon Dioxide 22 mmol/L (22-30); Chloride 108 mmol/L (98-107); Cholesterol 242 mg/dL (0-200); Estimated Glomerular Filt Rate > 60; Glucose 111 mg/dL (65-110); HDL Direct 43 mg/dL; Potassium 4.2 mmol/L (3.4-5.0); Sodium 138 mmol/L (137-145); Triglycerides 223 mg/dL (<150)
[2021-10-07 10:48] LABS: LDL Cholesterol Direct 146 mg/dL
[2021-10-07 11:04] LABS: Thyroid Stimulating Hormone 0.665 uIU/mL (0.465-4.680)
[2021-10-11 08:51] LABS: Testosterone Total 436 ng/dL (250-1100)
== END 2021-10-07 09:17 | disposition home or self-care (01) ==
LOC: ANHLAB 09:18
PROVIDERS: PCP Internal Medicine; Visit Provider Internal Medicine
DX: E78.5 Hyperlipidemia, unspecified (principal); I10 Essential (primary) hypertension; Z79.899 Other long term (current) drug therapy; R63.5 Abnormal weight gain; E29.1 Testicular hypofunction
CPT/HCPCS: 36415; 80053; 80061; 84403; 84443

== ENCOUNTER 2022-03-13 12:07 | Observation (INO) | payer OTHER, SELFPAY ==
[2022-03-13] VITALS (11 sets, daily range): BP systolic 122–200; BP diastolic 69–129; PULSE 62–76; RESP 18–20; TEMP 36.2–37.3; O2SAT 97–100; BMI 38.0
--- NOTE | ~2022-03-13 | XR_ITS ---
EXAMINATION: XR chest 2V DATE: 03/13/2022 12:49 INDICATION: Cough and shortness of breath and chest pain. TECHNIQUE: Frontal and lateral views of the chest were obtained. COMPARISON: Chest single view 05/27/2021, chest CT 05/11/2020 FINDINGS: The chest demonstrates clear lungs without pneumonia, pleural effusion, or pneumothorax. Th e heart size is normal. IMPRESSION: 1. No acute cardiopulmonary disease. Reviewed, dictated and finalized at location A.
--- NOTE | ~2022-03-13 | NM_ITS ---
EXAMINATION: NM jasmin stress w perfusion DATE: 03/14/2022 09:28 INDICATION: Shortness of breath TECHNIQUE: Rest images were obtained following intravenous administration of 10.7 mCi Tc99m tetrofosm in (Myoview). The patient was infused intravenously with Lexiscan (Regadenoson). Then, 34.6 mCi Tc99m tetrofosmin (Myoview) was administered intravenously, and stress images were obtained. Data was ge nstructed into short axis and horizontal and vertical long axis SPECT images. Gated SPECT images were also obtained. COMPARISON: 05/12/2020 FINDINGS: There is no definite reversible or fixed perfusion abnormality to suggest ischemia or infar ction. There is normal left ventricular chamber size, wall motion and ejection fraction. Left ventr icular ejection fraction measures 70%. IMPRESSION: 1. Normal myocardial perfusion at rest and during stress. 2. Left ventricular ejection fraction measuring 70%. Reviewed, dictated and finalized at location A. ING MACHINE TOOL SETTER
--- NOTE | ~2022-03-13 | CT_ITS ---
EXAMINATION: CTA chest PE protocol DATE: 03/13/2022 15:48 INDICATION: Shortness of breath and cough. Midsternal chest pain. TECHNIQUE: Computed tomography angiography (CTA) of the chest was performed with 100 mL Omnipaque-350 intravenous contrast timed to evaluate the pulmonary arteries. Coronal maximum intensity projection 3D-reconstructions were created by the technologist. Automated exposure control and iterative reconst ruction technique were employed. The dose-length product was 976.15 mGy-cm. COMPARISON: Chest CT 05/11/2020 FINDINGS: There is mild emphysema. There is mild atelectasis in lingula. No pleural effusion. The hea rt size is normal. No pericardial effusion. There is no pulmonary embolus. There is mild thoracic spo ndylosis. IMPRESSION: 1. No pulmonary embolus. 2. Mild emphysema. Reviewed, dictated and finalized at location A. 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
--- NOTE | 2022-03-13 12:27 | ECG_ITS ---
Measurements Intervals [place] Rate: 73 P: 3 NE: 159 QRS: 10 QRSD: 104 T: 64 QT: 387 QTc: 427 Interpretive Statements SINUS RHYTHM BORDERLINE R WAVE PROGRESSION, ANTERIOR LEADS BASELINE ARTIFACT- II, III, AVF, V5-V6 BORDERLINE ECG COMPARED TO ECG 05/27/2021 14:02:00 NO SIGNIFICANT CHANGES Electronically Signed On 03-13-2022 12:52:57 PROCESS DESIGN ENGINEER by Dilan Smith D.O.
[2022-03-13 12:46] LABS: Basophils Percent Auto 0.8 % (0.2-1.2); Eosinophils Absolute Auto 0.1 K/mm3 (0-0.3); Eosinophils Percent Auto 2.5 % (0-4.4); Hematocrit 44.1 % (42.0-52.0); Hemoglobin 15.4 g/dL (14.0-18.0); Immature Granulocyte Absolute 0.03 K/mm3 (0.00-0.031); Immature Granulocyte Percent A 0.6 % (0-0.5); Lymphocytes Absolute Auto 1.67 K/mm3 (0.9-3.2); Lymphocytes Percent Auto 31.9 % (18.3-44.2); Mean Corpuscular HGB Conc 34.9 g/dl (32-36); Mean Corpuscular Hemoglobin 29.2 pg (26-34); Mean Corpuscular Volume 83.7 fl (80-100); Mean Platelet Volume 9.4 fl (7.4-10.4); Monocytes Absolute Auto 0.4 K/mm3 (0.1-0.6); Monocytes Percent Auto 7.6 % (2.6-8.5); Neutrophils Percent Auto 56.6 % (45.5-73.1); Platelet Count Result 261 k/mm3 (150-375); Red Blood Count 5.27 M/mm3 (4.6-6.20); Red Cell Distribution Width 12.3 % (11.5-14.5); White Blood Count 5.2 K/mm3 (4.5-10.0)
[2022-03-13 13:00] LABS: Alanine Aminotransferase 27 U/L (6-50); Albumin Level 4.4 g/dL (3.5-5.1); Alkaline Phosphatase 76 U/L (38-126); Anion Gap 12 mmol/L (8-16); Aspartate Amino Transferase 25 U/L (17-59); Bilirubin,Total 0.9 mg/dL (0.2-1.3); Blood Urea Nitrogen 19 mg/dL (9-20); Calcium 9.1 mg/dL (8.4-10.2); Carbon Dioxide 25 mmol/L (22-30); Chloride 101 mmol/L (98-107); Estimated CRCL calculation 149 ml/min; Estimated Glomerular Filt Rate > 60; Glucose 106 mg/dL (65-110); Lipase 92 U/L (23-300); Potassium 3.8 mmol/L (3.4-5.0); Sodium 138 mmol/L (137-145)
[2022-03-13 13:07] LABS: Prothrombin Time 12.4 Seconds (11.1-14.7)
[2022-03-13 13:08] LABS: Partial Thromboplastin Time 28.3 SECONDS (22.3-36.8)
[2022-03-13 13:12] LABS: Troponin I < 0.012 ng/mL (0.000-0.034)
[2022-03-13] MEDS: ASPIRIN 81 MG CHEWABLE TABLET 324 MG PO (14:50)
[2022-03-13] MEDS: hydrALAZINE HCL 20 MG/ML VIAL 10 MG IV PUSH (14:52)
[2022-03-13 15:33] LABS: NT Pro B Type Natriuretic Pept 127 pg/mL (5-100)
[2022-03-13 15:49] LABS: SARS-CoV-2 RNA PCR Negative
--- NOTE | 2022-03-13 16:32 | ED.SOB ---
HPI - SOB/Dyspnea General Chief Complaint: Shortness of Breath/Dyspnea Stated Complaint: sob Time Seen by Provider: 03/13/22 14:21 Source: patient Mode of arrival: ambulatory Limitations: no limitations History of Present Illness HPI Narrative: 41-year-old with a history of hypertension, CAD s/p 3 stents here with complaints of shortness of breath for past few days. Patient states he wears bulletproof vest and every time he rates that he cannot get enough breath feels extremely tight in his chest. He denies any cough, fever or chills he states he has been taking his medications as prescribed. MD elicited complaint: shortness of breath Onset (ago): day(s) (5) Timing: constant Severity: moderate Exacerbating factors: exertion Relieving factors: nothing Associated symptoms: denies other symptoms Treatment prior to arrival: none Related Data Home Medications Medication Instructions Recorded Confirmed aspirin 81 mg tablet,delayed 81 mg PO DAILY 05/29/19 10/24/21 release (Aspir-) hydrochlorothiazide 12.5 mg tablet 12.5 mg PO DAILY 05/11/20 10/24/21 topiramate 100 mg tablet 100 mg PO DAILY 12/14/20 10/24/21 carvedilol 25 mg tablet 50 mg PO BID 06/16/21 10/24/21 Allergies Allergy/AdvReac Type Severity Reaction Status Date / Time Penicillins Allergy Unknown Rash Verified 03/13/22 14:18 Review of Systems Review of Systems: All systems reviewed & are unremarkable except as noted in HPI and below Constitutional: Constitutional: Reports no additional constitutional complaints Eyes: Eyes: Reports no additional eye complaints ENT: Reports system reviewed and no additional complaints, except as documented Cardiovascular: Cardiovascular: Reports no additional cardiovascular complaints Respiratory: Respiratory: Reports as per HPI Musculoskeletal: Musculoskeletal: Reports no additional musculoskeletal complaints Integumentary/Breasts: Skin/Breast: Reports system reviewed and no additional complaints, except as docu Neurologic: Reports system reviewed and no additional complaints, except as documented PMFSH Past Medical History Medical History History of [place] (myocardial infarction) Hyperlipidemia SARAH (obstructive sleep apnea) (01/20/19) Right knee DJD Family History Family History Mother Patient's mother is in good health Father Patient's father is in good health Social History Social History Years smoked: 26 Smoking status: Former smoker Tobacco type: cigarettes Second hand tobacco smoke exposure: Yes Smoking end date: 05/07/19 Alcohol intake: current Drinks per week: 1 Alcohol use details: Social Substance use: never Substance use type: does not use Spiritual care concerns: No Exam Narrative: GENERAL: Well-appearing, well-nourished, and in no acute distress. HEAD: Normocephalic, atraumatic. EYES: PERRLA and EOMI. NECK: Supple. CHEST: Clear to auscultation. No respiratory distress. HEART: Regular rate and rhythm. No murmur heard. Normal peripheral pulses. ABDOMEN: Soft, nontender, nondistended, normal active bowel sounds. EXTREMITIES: Normal range of motion. No edema. SKIN: Warm, dry, no rash. NEURO: No focal deficits. Alert and oriented x3. PSYCH: Normal mood and affect. Course Course Emergency Course: Patient upon arrival had a blood pressure of 209/128 then 164/117 and did give her 10 of hydralazine which brought it down , will do cardiac work-up including CTA of the chest. Cause of her shortness of breath is not obvious at this time. CT of the chest and cardiac work-up so far unremarkable. Discussed with cardiology Dr. Smith will see the patient in consult. Vital Signs Vital signs: Vital Signs Temperature 37.3 C 03/13/22 12:22 Pulse Rate 76 03/13/22 12:22 Respiratory Rate 18 03/13/22 12:22 Blood Pres
--- NOTE | 2022-03-13 16:45 | PM.IMHP ---
H&P: HPI History of Present Illness Date/Time: 03/13/22 16:45 Chief Complaint: Chest pain. Narrative: This is a pleasant 41-year-old male with premature coronary artery disease with history of stents to the RCA in 2011 and stents the left and right PDA in 2018, hypertension, dyslipidemia, and obstructive sleep apnea presented to the emergency department for evaluation of chest pain. 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 Over the past week or so he has noticed that he is getting more winded when walking, especially when going up a flight of steps or when he has to wear able approved fast which is quite heavy. Today he had some mild chest pressure which has been intermittent with out pattern and he decided to come in for evaluation. Blood pressure was 200/128 on arrival to the emergency department with normal vital signs otherwise. He was given a dose of hydralazine 10 milligrams IV x1 with improvement in his blood pressures. He is only on hydralazine at home for his hypertension and he reports that he takes at 1 time a day however it looks like the prescription is for 50 milligrams b.i.d.. EKG did not show any acute ST segment changes or changes from prior tracings and he has had a negative troponin thus far. At the time my evaluation he feels okay and has no specific complaints. Review of Systems Review of Systems: Twelve systems were reviewed. Over the last 2 years he has lost 90 pounds and he has not been needing his CPAP however more recently his has noticed that he is having more snoring episodes and perhaps even brief apneic episodes. He had chills last week and a slight sore throat in addition to a dry cough. He occasionally has wheezes. No pleuritic pain. No syncope or near syncope. No nausea or vomiting. Except as documented, all other systems were reviewed and are negative. FORMERLY [facility] Past Medical History Medical History (Updated 03/13/22 @ 21:10 by Rae Cleveland PA-C) Coronary artery disease History of [place] in 2012 status post stent to the RCA. He had stents the left and right PDA in 2018. Hyperlipidemia Hypertension Myocardial infarction Obstructive sleep apnea (01/20/19) Right knee DJD Surgical History Surgical History (Updated 03/13/22 @ 21:10 by Rae Cleveland PA-C) History of cardiac catheterization History of coronary artery stent placement Family History Family History Mother Patient's mother is in good health Father Patient's father is in good health Social History Social History (Updated 03/13/22 @ 21:11 by Rae Cleveland PA-C) Social History: Surrogate medical decision maker: Jelena Mcclure, significant other. Code status: Full code. Years smoked: 26 Smoking status: Light tobacco smoker Tobacco type: cigarettes and e-cigarettes/vaping Second hand tobacco smoke exposure: No Smoking end date: 05/07/19 Additional smoking assessment comments: Quit smoking a couple of years ago, has vaped for 2 years. Alcohol intake: current Drinks per week: 0 Alcohol use details: Social alcohol use in moderation. Substance use: never Substance use type: does not use Has the Lack of Transportation Kept You From Medical Appointments or From Getting Medications?: No Within the Past 12 Months, Were You Worried Whether Your Food Would Run Out Before You Got Money to Buy More?: Never True What is Your Housing Situation Today?: I Have Housing Are You Worried That in the Next 2 Months, You May Not Have Your Own Housing to Live In?: No Do You Have Trouble Paying Your Heating Or Electricity Bill?: No Do You Have Trouble Paying For Medicines?: No Are You Currently Unemployed and Looking for Work?: No Highest Level of Education Completed: Trade/Vocational Certificate Do You Have Trouble With Childcare or the Care of a Family Member?: No Spiritual care concerns: No Meds Home Medications
--- NOTE | 2022-03-13 16:47 | PM.CNCAR ---
Assessment and Plan Assessment and plan (1) Shortness of breath: Code(s): R06.02 - Shortness of breath Status: Acute Assessment and Plan: First troponin and EKG are unremarkable. Trend troponin. If troponin negative, obtain lexiscan myoview in AM. Obtain echo in AM. (2) CAD (coronary artery disease): Code(s): I25.10 - Atherosclerotic heart disease of viejas coronary artery without angina pectoris Status: Acute (3) Essential (primary) hypertension: Code(s): I10 - Essential (primary) hypertension Status: Acute Assessment and Plan: High. Monitor. Adjust BP medication as needed. Would add Losartan next. (4) Hyperlipidemia: Code(s): E78.5 - Hyperlipidemia, unspecified Status: Acute Assessment and Plan: On Rosuvastatin and Zetia. (5) SARAH (obstructive sleep apnea): Onset Date: 01/20/19 Code(s): G47.33 - Obstructive sleep apnea (adult) (pediatric) Status: Acute Assessment and Plan: He stopped using CPAP. Will need outpatient sleep study. History of Present Illness History of Present Illness Consult date/time: 03/13/22 16:47 Reason For Visit: sob Narrative: 41 yr old man who is my regular cardiology patient and used to see Dr. Jessee Mohan and PCP is Dr. Randall presents to ER for sob. He has a history of [place] with stent to RCA by Dr. Valladares at [facility] in 2011 and subsequent stents in left and right PDA [place] [address] Mohan, hypertension, dyslipidemia, prior SARAH, remote smoking. States that in past 1 week he noted more [place] walking up a flight of stairs or having to wear a vest for work. He noted today mild chest pressure intermittently. Flat ground he can miles without any problems. States he stops breathing at times while sleeping and has daytime sleepiness. Denies orthopnea, PND, edema, palpitations, dizziness. ? Cardiovascular Procedures Industrial Photographer:: 08/21/2017 Cardiac cath at [facility] with Dr. Mohan: 100% left PDA and right PDA 99% stenosis; PCI with stents to left and right PDA with excellent results. 2011 [facility]: RCA stent. Echo/MUGA:: 02/27/20 Echo at [facility]: EF 60%, trace MR/TR. Electrophysiology:: 05/11/20 EKG: Sinus rhythm, consider inferior infarct, age indeterminate. Stress Tests:: 05/12/20 Lexiscan myoview: Negative for ischemia. Review of Systems Review of Systems: All systems reviewed & are unremarkable except as noted in HPI and below Constitutional: Constitutional: Reports as per HPI, Denies chills and Denies fever(s) Cardiovascular: Cardiovascular: Reports as per HPI, Reports chest pain, Denies irregular heart rhythm, Denies leg edema and Denies lightheadedness Respiratory: Respiratory: Reports as per HPI and Reports dyspnea Gastrointestinal: Gastrointestinal: Reports as per HPI and Denies abdominal pain Genitourinary: Genitourinary: Reports as per HPI and Denies dysuria Musculoskeletal: Musculoskeletal: Reports as per HPI Neurologic: Reports as per HPI, Denies dizziness and Denies syncope PMFSH Past Medical History Medical History History of [place] (myocardial infarction) Hyperlipidemia SARAH (obstructive sleep apnea) (01/20/19) Right knee DJD Family History Family History Mother Patient's mother is in good health Father Patient's father is in good health Social History Social History Years smoked: 26 Smoking status: Former smoker Tobacco type: cigarettes Second hand tobacco smoke exposure: Yes Smoking end date: 05/07/19 Alcohol intake: current Drinks per week: 1 Alcohol use details: Social Substance use: never Substance use type: does not use Spiritual care concerns: No Meds Home Medications and Allergies Home Medications Medication Instructions Recorded Confirmed Type aspirin 81
--- NOTE | 2022-03-13 18:24 | ADMGEN ---
This patient, Jorge Guzman, was admitted to IMU Room 210-01. Patient/family oriented to hospital policies and general routines including ID bracelet, bed and alarms, visiting hours, pain management, procedures, bathroom and other care routines, personal items, smoking policy, room service/diet, and visiting hours. Information on how to activate the Rapid Response Team has been discussed. Patient/Family are encouraged to report perceived risks to care and to ask questions if they do not understand what they are told or what they should do.
[2022-03-13 19:21] LABS: Troponin I < 0.012 ng/mL (0.000-0.034)
[2022-03-13] MEDS: hydrALAZINE HCL 50 MG TABLET PO (21:46)
[2022-03-13] MEDS: ACETAMINOPHEN 325 MG TABLET 650 MG PO (21:49)
[2022-03-14] VITALS (7 sets, daily range): BP systolic 150–177; BP diastolic 80–108; PULSE 57–81; RESP 12–20; TEMP 36.2–36.7; O2SAT 97–98
--- NOTE | 2022-03-14 | ECHO_ITS ---
Patient Info Name: Jorge Guzman Age: 41 years : 1980 Gender: Male Ht: 71 in Wt: 242 lbs BSA: 2.38 m2 HR: 64 bpm BP: 150 / 80 mmHg Technical Quality: Good Exam Date: 03/14/2022 9:54 AM Exam Location: [facility] Pulmonary Patient Status: Inpatient Admit Date: 03/13/2022 Staff Ordering Physician: Dilan Smith DO Utility Agent: Alexis Gee RDCS Attending Provider: Rich Reynaga MD Referring Physician: Luis WEI; Exam Type: CA echo doppler color flow Study Info Indications R06.02 - Shortness of breath Complete two-dimensional, color flow and Doppler transthoracic echocardiogram is performed. Summary 1. Complete two-dimensional, color flow and Doppler transthoracic echocardiogram is performed. 2. Left ventricular chamber dimension is normal. 3. Left ventricular systolic function is normal, estimated at 65-70%. 4. There is moderately increased left ventricular wall thickness. 5. The left ventricular diastolic function is normal. 6. E/e' 8 is minimally elevated. 7. There is trace mitral valve regurgitation. Left Ventricle E/e' 8 is minimally elevated. Left ventricular chamber dimension is normal. Left ventricular systolic function is normal, estimated at 65-70%. There is moderately increased left ventricular wall thickness. The left ventricular diastolic function is normal. Right Ventricle Right ventricular systolic function is normal and with normal TAPSE 2.2 cm. Right ventricular chamber dimension is normal. Left Atria Left atrial chamber dimension is normal. Right Atria Right atrial chamber dimension is normal. Aortic Valve The aortic valve is trileaflet. There is no aortic valve stenosis. There is no aortic valve regurgitation. Pulmonic Valve There is no pulmonic regurgitation. Mitral Valve There is no mitral valve stenosis. There is trace mitral valve regurgitation. Tricuspid Valve There is no tricuspid valve regurgitation. Pericardium/Pleural There is no pericardial effusion. Inferior Vena Cava Normal inferior vena cava with >50% collapse upon inspiration consistent with normal right atrial pressure, 5 mmHg. Aorta The aortic root size at the sinus of Valsalva is normal. Left Ventricular Outflow Tract Name Value Normal LVOT 2D LVOT Diameter 2.2 cm LVOT Doppler LVOT Peak Gradient 3 mmHg LVOT Mean Gradient 2 mmHg LVOT VTI 20 cm LVOT VTI/AV VTI Ratio 1.0 LVOT Stroke Volume 75 ml LVOT CO 5.0 l/min LVOT CI 2.1 l/min/m2 Mitral Valve Name Value Normal MV Doppler MV Peak Gradient 3 mmHg MV Mean Gradient 1 mmHg MV Decel Sl
--- NOTE | 2022-03-14 | EST_ITS ---
Patient Info Name: Jorge Guzman Age: 41 years : 1980 Gender: Male Ht: 71 in Wt: 242 lbs BSA: 2.38 m2 Exam Date: 03/14/2022 8:40 AM Exam Location: [facility] Stress Patient Status: Outpatient Admit Date: 03/13/2022 Staff Ordering Physician: Dilan Smith DO Attending Provider: Rich Reynaga MD Exercise Technologist: Tiny Bishop RDCS Exercise Physician: Dilan Smith DO Exam Type: CA stress jasmin w NM Study Info Indications R06.00 - Dyspnea, unspecified A regadenoson stress test was performed. Summary 1. 1. Negative lexiscan stress test for ischemic ST changes by ECG criteria. 2. 2. Baseline hypertension. 3. 3. Nuclear scan to follow and will be reported separately. Please correlate with it. 4. 4. Patient informed of the above results. Protocol: Lexiscan Stress ECG Details Stage: REST Duration (min): 1 min : 22 sec HR (bpm): 69 SBP (mmHg): 154 DBP (mmHg): 108 Stage: REST Duration (min): 5 min : 27 sec HR (bpm): 67 SBP (mmHg): 154 DBP (mmHg): 108 Stage: STAGE 1 Duration (min): 1 min : 0 sec HR (bpm): 92 SBP (mmHg): 153 DBP (mmHg): 105 Stage: RECOVERY Duration (min): 1 min : 0 sec HR (bpm): 107 SBP (mmHg): 158 DBP (mmHg): 93 Stage: RECOVERY Duration (min): 2 min : 0 sec HR (bpm): 104 SBP (mmHg): 158 DBP (mmHg): 93 Stage: RECOVERY Duration (min): 3 min : 0 sec HR (bpm): 101 SBP (mmHg): 150 DBP (mmHg): 102 Stage: RECOVERY Duration (min): 3 min : 11 sec HR (bpm): 98 SBP (mmHg): 150 DBP (mmHg): 102 Rest HR: 67 bpm Peak HR: 111 bpm Rest Sys BP: 154 mmHg Peak Sys BP: 158 mmHg Max Pred HR: 178 bpm % Max Pred HR: 62 % Target HR: 151 bpm Max RPP: 17,538 bpm*mmHg Termination Reason: Completed protocol Cardiac Symptoms: Shortness of breath, Stomach discomfort Total Time: 1 min : 0 sec Rest Malcolm BP: 108 mmHg Peak Malcolm BP: 93 mmHg Total Dose: 0.4 mg Resting ECG Sinus rhythm. Stress ECG No ST changes. Arrhythmias None. Report Signatures
[2022-03-14 04:59] LABS: Hematocrit 45.6 % (42.0-52.0); Hemoglobin 15.6 g/dL (14.0-18.0); Mean Corpuscular HGB Conc 34.2 g/dl (32-36); Mean Corpuscular Hemoglobin 29.4 pg (26-34); Mean Corpuscular Volume 85.9 fl (80-100); Mean Platelet Volume 9.8 fl (7.4-10.4); Platelet Count Result 261 k/mm3 (150-375); Red Blood Count 5.31 M/mm3 (4.6-6.20); Red Cell Distribution Width 12.6 % (11.5-14.5); White Blood Count 6.3 K/mm3 (4.5-10.0)
[2022-03-14 05:12] LABS: Alanine Aminotransferase 26 U/L (6-50); Albumin Level 4.1 g/dL (3.5-5.1); Alkaline Phosphatase 75 U/L (38-126); Anion Gap 11 mmol/L (8-16); Aspartate Amino Transferase 23 U/L (17-59); Bilirubin,Total 1.3 mg/dL (0.2-1.3); Blood Urea Nitrogen 15 mg/dL (9-20); Calcium 8.5 mg/dL (8.4-10.2); Carbon Dioxide 23 mmol/L (22-30); Chloride 103 mmol/L (98-107); Estimated CRCL calculation 158 ml/min; Estimated Glomerular Filt Rate > 60; Glucose 98 mg/dL (65-110); Magnesium 2.2 mg/dL (1.6-2.3); Potassium 3.6 mmol/L (3.4-5.0); Sodium 137 mmol/L (137-145)
[2022-03-14 05:19] LABS: NT Pro B Type Natriuretic Pept 112 pg/mL (5-100)
--- NOTE | 2022-03-14 11:13 | PM.IMPN ---
Progress Note: A&P Assessment and Plan (1) Shortness of breath: Code(s): R06.02 - Shortness of breath Status: Acute Assessment and Plan: likely secondary to congestive heart failure exacerbation. Patient has an EF of around 15%. he was provided LifeVest in the past and has refused to wear it. I had an extensive discussion with the patient again this morning about wearing LifeVest. Cardiology has been consulted as well. Defer further management to them (2) Hyperlipidemia: Code(s): E78.5 - Hyperlipidemia, unspecified Status: Acute Assessment and Plan: Continue home medication. (3) Essential (primary) hypertension: Code(s): I10 - Essential (primary) hypertension Status: Acute Assessment and Plan: on hydralazine p.o. b.i.d.. Losartan added per Cardiology (4) CAD (coronary artery disease): Code(s): I25.10 - Atherosclerotic heart disease of [place] coronary artery without angina pectoris Status: Acute Assessment and Plan: Continue home medication of aspirin, statin Subjective Date/time seen: 03/14/22 11:13 patient denies any complaints at this time. No shortness of breath Review of Systems Review of Systems: All systems reviewed & are unremarkable except as noted in HPI and below Constitutional: Constitutional: Reports as per HPI, Denies chills and Denies fever(s) Cardiovascular: Cardiovascular: Reports as per HPI, Reports chest pain, Denies irregular heart rhythm, Denies leg edema and Denies lightheadedness Respiratory: Respiratory: Reports as per HPI and Reports dyspnea Gastrointestinal: Gastrointestinal: Reports as per HPI and Denies abdominal pain Genitourinary: Genitourinary: Reports as per HPI and Denies dysuria Musculoskeletal: Musculoskeletal: Reports as per HPI Neurologic: Reports as per HPI, Denies dizziness and Denies syncope Exam Const: General: cooperative, healthy appearing and comfortable Resp: Auscultation: clear to auscultation bilaterally, no crackles, no rales, no rhonchi and no wheezes Cardio: Rate: regular rate Rhythm: regular rhythm Heart sounds: no murmurs Peripheral pulses: dorsalis pedis present GI: GI Palp: No abdominal tenderness and Yes Soft to palpation Neuro: General: oriented to person, oriented to place and oriented to time Extrem: Right lower extremity: no edema Left lower extremity: no edema Objective Data Vital Signs Vital Signs: Vital Signs - 24 hr 03/13/22 12:22 03/13/22 14:15 03/13/22 14:16 Temperature 99.1 F Pulse Rate 76 71 Respiratory Rate 18 Blood Pressure 200/128 H Pulse Oximetry 99 97 Oxygen Delivery Room Air 03/13/22 14:16 03/13/22 14:56 03/13/22 16:43 Temperature Pulse Rate 73 68 Respiratory Rate 18 20 Blood Pressure 164/117 H 150/102 H Pulse Oximetry 98 98 99 Oxygen Delivery Room Air 03/13/22 17:14 03/13/22 18:10 03/13/22 18:37 Temperature 97.2 F L Pulse Rate 65 62 67 Respiratory Rate 18 18 20 Blood Pressure 150/102 H 142/97 H 169/129 H Pulse Oximetry 99 98 100 Oxygen Delivery 03/13/22 20:00 03/13/22 20:00 03/13/22 20:00 Temperature 98.0 F Pulse Rate 69 62 69 Respiratory Rate 20 20 Blood Pressure 178/111 H Pulse Oximetry 98 98 Oxygen Delivery Room Air 03/13/22 22:00 03/13/22 23:48 03/14/22 00:00 Temperature 98.0 F Pulse Rate 70 76 74 Respiratory Rate 18 Blood Pressure 122/69 Pulse Oximetry 98 Oxygen Delivery 03/14/22 00:00 03/14/22 02:00 03/14/22 04:00 Temperature Pulse Rate 76 60 61 Respiratory Rate 18 Blood Pressure Pulse Oximetry 98 Oxygen Delivery Room Air 03/14/22 04:00 03/14/22 04:00 03/14/22 06:00 Temperature 98.0 F Pulse Rate 60 57 L 60 Respiratory Rate 18 20 Blood Pressure 150/80 H Pulse Oximetry 98 97 Oxygen Delivery Room Air 03/14/22 08:00 03/14/22 08:00 Temperature 97.9 F Pulse Rate 59 L 59 L Respiratory Rate 12 12 Blood Pressure 1
--- NOTE | 2022-03-14 11:17 | PM.IMPN ---
Progress Note: A&P Assessment and Plan (1) CAD (coronary artery disease): Code(s): I25.10 - Atherosclerotic heart disease of [place] coronary artery without angina pectoris Status: Acute Assessment and Plan: Continue home medication of aspirin, statin. cardiology consulted. plan for nuclear stress test and echo today (2) Hyperlipidemia: Code(s): E78.5 - Hyperlipidemia, unspecified Status: Acute Assessment and Plan: Continue home medication. (3) Essential (primary) hypertension: Code(s): I10 - Essential (primary) hypertension Status: Acute Assessment and Plan: on hydralazine p.o. b.i.d.. Losartan added per Cardiology Subjective Date/time seen: 03/14/22 11:17 no chest pain, quyen Review of Systems Review of Systems: All systems reviewed & are unremarkable except as noted in HPI and below Constitutional: Constitutional: Reports as per HPI, Denies chills and Denies fever(s) Cardiovascular: Cardiovascular: Reports as per HPI, Reports chest pain, Denies irregular heart rhythm, Denies leg edema and Denies lightheadedness Respiratory: Respiratory: Reports as per HPI and Reports dyspnea Gastrointestinal: Gastrointestinal: Reports as per HPI and Denies abdominal pain Genitourinary: Genitourinary: Reports as per HPI and Denies dysuria Musculoskeletal: Musculoskeletal: Reports as per HPI Neurologic: Reports as per HPI, Denies dizziness and Denies syncope Exam Const: General: cooperative, healthy appearing and comfortable Resp: Auscultation: clear to auscultation bilaterally, no crackles, no rales, no rhonchi and no wheezes Cardio: Rate: regular rate Rhythm: regular rhythm Heart sounds: no murmurs Peripheral pulses: dorsalis pedis present GI: GI Palp: No abdominal tenderness and Yes Soft to palpation Neuro: General: oriented to person, oriented to place and oriented to time Extrem: Right lower extremity: no edema Left lower extremity: no edema Objective Data Vital Signs Vital Signs: Vital Signs - 24 hr 03/13/22 12:22 03/13/22 14:15 03/13/22 14:16 Temperature 99.1 F Pulse Rate 76 71 Respiratory Rate 18 Blood Pressure 200/128 H Pulse Oximetry 99 97 Oxygen Delivery Room Air 03/13/22 14:16 03/13/22 14:56 03/13/22 16:43 Temperature Pulse Rate 73 68 Respiratory Rate 18 20 Blood Pressure 164/117 H 150/102 H Pulse Oximetry 98 98 99 Oxygen Delivery Room Air 03/13/22 17:14 03/13/22 18:10 03/13/22 18:37 Temperature 97.2 F L Pulse Rate 65 62 67 Respiratory Rate 18 18 20 Blood Pressure 150/102 H 142/97 H 169/129 H Pulse Oximetry 99 98 100 Oxygen Delivery 03/13/22 20:00 03/13/22 20:00 03/13/22 20:00 Temperature 98.0 F Pulse Rate 69 62 69 Respiratory Rate 20 20 Blood Pressure 178/111 H Pulse Oximetry 98 98 Oxygen Delivery Room Air 03/13/22 22:00 03/13/22 23:48 03/14/22 00:00 Temperature 98.0 F Pulse Rate 70 76 74 Respiratory Rate 18 Blood Pressure 122/69 Pulse Oximetry 98 Oxygen Delivery 03/14/22 00:00 03/14/22 02:00 03/14/22 04:00 Temperature Pulse Rate 76 60 61 Respiratory Rate 18 Blood Pressure Pulse Oximetry 98 Oxygen Delivery Room Air 03/14/22 04:00 03/14/22 04:00 03/14/22 06:00 Temperature 98.0 F Pulse Rate 60 57 L 60 Respiratory Rate 18 20 Blood Pressure 150/80 H Pulse Oximetry 98 97 Oxygen Delivery Room Air 03/14/22 08:00 03/14/22 08:00 Temperature 97.9 F Pulse Rate 59 L 59 L Respiratory Rate 12 12 Blood Pressure 169/105 H Pulse Oximetry 97 97 Oxygen Delivery Room Air Intake/Output Intake/Output: Intake & Output 03/12/22 03/12/22 03/13/22 03/14/22 00:59 23:59 23:59 23:59 Intake Total 300 / 300 Balance 300 / 300 Meds/Results Medications: Active Medications Generic Name Dose Route Start Last Admin Trade Name Freq PRN Reason Stop Dose Admin Acetaminophen 650 mg 03/13/22 16:42 03/13/22 21:49 Acet
[2022-03-14] MEDS: LOSARTAN POTASSIUM 50 MG TABLET PO (11:34)
[2022-03-14] MEDS: ASPIRIN 81 MG ENTERIC TABLET PO (11:34)
[2022-03-14] MEDS: hydrALAZINE HCL 50 MG TABLET PO (11:34)
[2022-03-14] MEDS: ACETAMINOPHEN 325 MG TABLET 650 MG PO (11:38)
--- NOTE | 2022-03-14 13:03 | PM.PNCARD ---
Progress Note: A&P Assessment and Plan (1) Shortness of breath: Code(s): R06.02 - Shortness of breath Status: Acute Assessment and Plan: Probably due to uncontrolled BP. Troponin negative and EKG are unremarkable. Lexiscan myoview is negative. Echo is unremarkable. May d/c home from cardiology standpoint. Have him f/u with me in 1 week. (2) CAD (coronary artery disease): Code(s): I25.10 - Atherosclerotic heart disease of [place] coronary artery without angina pectoris Status: Acute Assessment and Plan: Stable. (3) Essential (primary) hypertension: Code(s): I10 - Essential (primary) hypertension Status: Acute Assessment and Plan: High. Monitor. Start Losartan 50 mg daily. Increase Hydralazine 50 mg BID. He is unsure what BP medication he is taking at home. (4) Hyperlipidemia: Code(s): E78.5 - Hyperlipidemia, unspecified Status: Acute Assessment and Plan: On Rosuvastatin and Zetia. (5) SARAH (obstructive sleep apnea): Onset Date: 01/20/19 Code(s): G47.33 - Obstructive sleep apnea (adult) (pediatric) Status: Acute Assessment and Plan: He stopped using CPAP. Will need outpatient sleep study. Subjective Date/time seen: 03/14/22 13:03 Interval history: Had some intermittent sob. No chest pains. Exam Const: General: cooperative, healthy appearing and comfortable Orientation/consciousness: oriented to person, oriented to place and oriented to time Resp: Auscultation: clear to auscultation bilaterally, no crackles, no rales, no rhonchi and no wheezes Cardio: Rate: regular rate Rhythm: regular rhythm Heart sounds: no murmurs Peripheral pulses: dorsalis pedis present Neuro: General: oriented to person, oriented to place and oriented to time Extrem: Right lower extremity: no edema Left lower extremity: no edema Objective Data Vital Signs Vital Signs: Vital Signs - 24 hr 03/13/22 14:15 03/13/22 14:16 03/13/22 14:16 Temperature Pulse Rate 71 Respiratory Rate Blood Pressure Pulse Oximetry 97 98 Oxygen Delivery Room Air Room Air 03/13/22 14:56 03/13/22 16:43 03/13/22 17:14 Temperature Pulse Rate 73 68 65 Respiratory Rate 18 20 18 Blood Pressure 164/117 H 150/102 H 150/102 H Pulse Oximetry 98 99 99 Oxygen Delivery 03/13/22 18:10 03/13/22 18:37 03/13/22 20:00 Temperature 97.2 F L 98.0 F Pulse Rate 62 67 69 Respiratory Rate 18 20 20 Blood Pressure 142/97 H 169/129 H 178/111 H Pulse Oximetry 98 100 98 Oxygen Delivery 03/13/22 20:00 03/13/22 20:00 03/13/22 22:00 Temperature Pulse Rate 62 69 70 Respiratory Rate 20 Blood Pressure Pulse Oximetry 98 Oxygen Delivery Room Air 03/13/22 23:48 03/14/22 00:00 03/14/22 00:00 Temperature 98.0 F Pulse Rate 76 74 76 Respiratory Rate 18 18 Blood Pressure 122/69 Pulse Oximetry 98 98 Oxygen Delivery Room Air 03/14/22 02:00 03/14/22 04:00 03/14/22 04:00 Temperature Pulse Rate 60 61 60 Respiratory Rate 18 Blood Pressure Pulse Oximetry 98 Oxygen Delivery Room Air 03/14/22 04:00 03/14/22 06:00 03/14/22 08:00 Temperature 98.0 F 97.9 F Pulse Rate 57 L 60 59 L Respiratory Rate 20 12 Blood Pressure 150/80 H 169/105 H Pulse Oximetry 97 97 Oxygen Delivery 03/14/22 08:00 03/14/22 12:00 Temperature 97.2 F L Pulse Rate 59 L 67 Respiratory Rate 12 12 Blood Pressure 177/108 H Pulse Oximetry 97 98 Oxygen Delivery Room Air Intake/Output Intake/Output: Intake & Output 03/12/22 03/12/22 03/13/22 03/14/22 00:59 23:59 23:59 23:59 Intake Total 300 Balance 300 Meds/Results Medications: Active Medications Generic Name Dose Route Start Last Admin Trade Name Freq PRN Reason Stop Dose Admin Acetaminophen 650 mg 03/13/22 16:42 03/14/22 11:38 Acetaminophen 325 Mg Tablet PO 650 mg Q4H PRN Administration Mild Pain (1-3) or Fever Aspirin
--- NOTE | 2022-03-14 13:25 | PM.DS ---
DS: Admitting Diagnosis Discharge Date 03/14/22 Admitting Diagnosis chest pain DS: Summary Hospital Course Hospital Course: Patient was admitted with chest pain. BP was elevated at admission. cardiology was consulted. they increased his hydralazine to 50 mg PO BID and added Losartan. he had Lexiscan and Echo ordered. Lexiscan myoview is negative. Echo is unremarkable. patient ok to be discharged home per cardio. he is stable and is being discharged home. Time Spent with Patient Time attestation: Total time spent providing and/or coordinating discharge services: Exam Const: General: cooperative, healthy appearing and comfortable Orientation/consciousness: oriented to person, oriented to place and oriented to time Resp: Auscultation: clear to auscultation bilaterally, no crackles, no rales, no rhonchi and no wheezes Cardio: Rate: regular rate Rhythm: regular rhythm Heart sounds: no murmurs Peripheral pulses: dorsalis pedis present Neuro: General: oriented to person, oriented to place and oriented to time Extrem: Right lower extremity: no edema Left lower extremity: no edema DS: Data Data Completed and Pending Labs on day of discharge: Labs from last 24 hours 03/14/22 03/14/22 03/14/22 04:41 04:41 04:41 WBC 6.3 RBC 5.31 Hgb 15.6 Hct 45.6 MCV 85.9 MCH 29.4 MCHC 34.2 RDW 12.6 Plt Count 261 MPV 9.8 Sodium 137 Potassium 3.6 Chloride 103 Carbon Dioxide 23 Anion Gap 11 BUN 15 Creatinine 0.70 Estim Creat Clear Calc 158 Estimated GFR > 60 Glucose 98 Calcium 8.5 Magnesium 2.2 Total Bilirubin 1.3 AST 23 ALT 26 Alkaline Phosphatase 75 Troponin I NT-Pro-B Natriuret Pep 112 H Total Protein 7.0 Albumin 4.1 TSH (Reflex) 1.410 SARS-CoV-2 RNA (RT-PCR) 03/13/22 03/13/22 03/13/22 18:41 16:11 15:08 WBC RBC Hgb Hct MCV MCH MCHC RDW Plt Count MPV Sodium Potassium Chloride Carbon Dioxide Anion Gap BUN Creatinine Estim Creat Clear Calc Estimated GFR Glucose Calcium Magnesium Total Bilirubin AST ALT Alkaline Phosphatase Troponin I < 0.012 Cancelled NT-Pro-B Natriuret Pep Total Protein Albumin TSH (Reflex) SARS-CoV-2 RNA (RT-PCR) Negative 03/13/22 15:08 WBC RBC Hgb Hct MCV MCH MCHC RDW Plt Count MPV Sodium Potassium Chloride Carbon Dioxide Anion Gap BUN Creatinine Estim Creat Clear Calc Estimated GFR Glucose Calcium Magnesium Total Bilirubin AST ALT Alkaline Phosphatase Troponin I NT-Pro-B Natriuret Pep 127 H Total Protein Albumin TSH (Reflex) SARS-CoV-2 RNA (RT-PCR) Discharge Plan Discharge Consulting providers: Dilan Smith Discharging Clinician: Rich Reynaga Anticipated Discharge Date/Time: 03/14/22 13:23 Patient Disposition: Home, Self-Care Activity: september shower Diet: heart healthy Patient Instructions: Antibiotic Form, Aspirin (By mouth), Chest Pain (DC), Pain Management (DC), Chronic Hypertension (DC) Stand Alone Forms: General Discharge Information Follow-up/Referrals: Gaston Randall DO [Primary Care Provider] - Discharge Medications: New losartan [Cozaar] 50 mg Tablet 50 mg PO DAILY Qty: 30 0RF Continued aspirin [Aspir-81] 81 mg tablet,delayed release (DR/EC) 81 mg PO DAILY ezetimibe [Zetia] 10 mg tablet 10 mg PO DAILY Qty: 90 2RF rosuvastatin 40 mg tablet 40 mg PO DAILY Qty: 90 2RF hydralazine 50 mg tablet 50 mg PO BID 30 Days Qty: 60 0RF Date of admission: 03/13/22 16:42 Primary Care Provider: Gaston Randall Admitting Provider: Alonso Dailey Attending physician on admission: Rich Reynaga Condition: Stable
[2022-03-14] MEDS: ROSUVASTATIN 10 MG TABLET 40 MG PO (15:38)
[2022-03-14] MEDS: EZETIMIBE 10 MG TABLET PO (15:38)
== END 2022-03-14 15:59 | disposition home or self-care (01) ==
LOC: ANHED 16:40 → ANHIMU 17:29
PROVIDERS: Physician Assistant; Admitting Provider Chiropractor; Emergency Provider Family Medicine; PCP Internal Medicine; Visit Provider Hospitalist
DX: R07.9 Chest pain, unspecified (principal); R06.02 Shortness of breath; I10 Essential (primary) hypertension; I25.10 Atherosclerotic heart disease of native coronary artery without angina pectoris; E78.5 Hyperlipidemia, unspecified; G47.33 Obstructive sleep apnea (adult) (pediatric); Z95.5 Presence of coronary angioplasty implant and graft; I25.2 Old myocardial infarction; M17.11 Unilateral primary osteoarthritis, right knee; J43.9 Emphysema, unspecified; F17.290 Nicotine dependence, other tobacco product, uncomplicated; Z20.822 Contact with and (suspected) exposure to COVID-19; Z79.82 Long term (current) use of aspirin; Z79.899 Other long term (current) drug therapy
CPT/HCPCS: 36415; 71046; 71275; 78452; 80053; 83690; 83735; 83880; 84443; 84484; 85025; 85027; 85610; 85730; 93005; 93017; 93306; 96374; 99285; A9270; A9502; G0378; G0379; J0360; J2785; Q9967; U0003; U0005

== ENCOUNTER 2022-04-03 13:12 | Outpatient (CLI) | payer OTHER, SELFPAY ==
--- NOTE | 2022-04-04 13:36 | WPDPFTINT ---
PFT Procedure Performed PFT Procedure Performed Spirometry with Pre/Post Bronchodilator Plethysmography (Lung Vol) Diffusing Cap (DLCO) Flow Vol Loop PFT Interpretation Lung volumes were measured with the body plethysmography method. The mildly diminished total lung capacity and vital capacity could be related to restrictive respiratory disease. Spirometry showed diminished expiratory flow rates and a normal FEV1 to FVC ratio of 80% also consistent with restrictive respiratory disease. Following administration of a bronchodilator, there was no significant increase in expiratory flow rates. Lung diffusion capacity is within the normal range at 96% predicted. The flow volume loop is unremarkable. Impression: Restrictive respiratory disease. Lung diffusion capacity within the normal range.
== END 2022-04-03 13:13 | disposition home or self-care (01) ==
LOC: ANHPFT 13:13
PROVIDERS: PCP Internal Medicine; Visit Provider Nurse Practitioner
DX: R06.02 Shortness of breath (principal); J45.909 Unspecified asthma, uncomplicated
CPT/HCPCS: 94060; 94726; 94729

== ENCOUNTER 2022-05-23 08:34 | Outpatient (CLI) | payer OTHER, SELFPAY ==
--- NOTE | 2022-06-01 18:12 | WPDSLEEPSTUD ---
Sleep Study Date of Study: 05/23/22 Ordering Provider: Dilan Smith DO Interpreting Physician: Jada Jordan MD Sleep Study Type: Split Polysomnogram Height: 1.8 m Weight: 108.862 kg Body Mass Index: 33.5 Neck Circumference (inches): 20 [place]: 9 Reason for Sleep Study Poor quality sleep * Home sleep test October 22, 2018 with an AHI of 81.5, lowest saturation 65% Sleep History Jorge Guzman is a 42-year-old man with hypertension, CAD with stents and history of OH, who does not have refreshing sleep. He had a home sleep study in 2018 showing severe obstructive sleep apnea with deep desaturaiton to 65%,, see above. Even after 7 hours of sleep, he feels as if he only slept for 3 hours. He had a sleep study in 2012. He occasionally awakens from sleep feeling short of breath. He occasionally awakens at night with heartburn, belching or coughing. He occasionally snores and occasionally this is loud enough to bother is others. He frequently has trouble sleeping with a cold. He frequently wakes up gasping for breath at night. He occasionally has breathing problems at night observed by others. He rarely sweats excessively at night. He occasionally notices his heart pounding or beating irregularly at night. He occasionally falls asleep during the day, occasionally falls asleep involuntarily but never falls asleep while driving. He does not have loss of muscle tone with strong emotion. He does not have daytime difficulties due to excessive sleepiness. He is a technical publications writer. He does not feel paralyzed on waking or falling asleep and does not have vivid dreamlike scenes on waking or falling asleep. He does not feel afraid to go to sleep. He does not have nightmares. He occasionally remembers his dreams. He rarely has racing thoughts. He does not feel sad or depressed. He rarely has anxiety. He does not have muscular tension. He rarely notices parts of his body jerking. He rarely kicks at night. He does not have crawling or aching feelings in his legs or any kind of leg pain at night. He does not have morning jaw pain. He does not grind his teeth at night. He rarely is bothered by pain during the day. He is not awakened by pain at night. He does not wake up feeling stiff in the morning with sore achy muscles or pain in the neck and spine. He reports a 30 lb weight gain in the last year. Normal bedtime is 2:00 a.m. falling asleep within 10 minutes. He typically wakes at night between 1 and 2 times to get a drink of water. He is able to return to sleep within 5 minutes. Wakes in the morning at 8:00 a.m.. Weekend schedule is similar, goes to bed between 2 and 3:00 a.m., wakes at 8:00 a.m.. He does not take naps in the afternoon or evening. A short nap lasting 10 or 15 minutes may be refreshing. He is generally not refreshed upon waking.He feels better in the evening compared to other times of day. Habits: Former smoker. Caffeine: 2 diet drinks per day, 24 oz. Alcohol 1 drink per month. No recreational substance. [facility] Past Medical History Medical History Coronary artery disease History of OH in 2012 status post stent to the RCA. He had stents the left and right PDA in 2018. Hyperlipidemia Hypertension Myocardial infarction Obstructive sleep apnea (01/20/19) Right knee DJD Surgical History Surgical History History of cardiac catheterization History of coronary artery stent placement Family History Family History Mother Patient's mother is in good health Father Patient's father is in good health Social History Social History Social History: Surrogate medical decision maker: Jelena Mcclure, significant other. Code status: Full code. Years smoked: 26 Smoking status: Former smok
[2022-06-02 13:24] VITALS: BMI 33.5
== END 2022-05-24 07:26 | disposition home or self-care (01) ==
LOC: ANHCSM 08:37
PROVIDERS: PCP Internal Medicine; Visit Provider Internal Medicine Cardiovascular Disease
DX: G47.33 Obstructive sleep apnea (adult) (pediatric) (principal); Z68.33 Body mass index [BMI] 33.0-33.9, adult
CPT/HCPCS: 95811

== ENCOUNTER 2022-07-05 12:38 | Outpatient (CLI) | payer OTHER, SELFPAY ==
[2022-07-05 13:00] VITALS: PULSE 77; O2SAT 95
[2022-07-05 13:05] VITALS: PULSE 105; O2SAT 96
[2022-07-05 13:20] VITALS: PULSE 80; O2SAT 95
--- NOTE | 2022-07-05 14:11 | HOMEO2EVAL ---
Evaluation was performed at [facility] Home Oxygen Evaluation RC: Home Oxygen (O2) Evaluation Start: 07/05/22 14:09 Freq: Status: Active Protocol: RPE Activity Type Activity Date Activity User E-sign Co-sign Detail Recorded Client Recorded Date Recorded By Document 07/05/22 13:00 [facility] [id number] 07/05/22 14:11 [facility] Document 07/05/22 13:05 [facility] [id number] 07/05/22 14:11 [facility] Document 07/05/22 13:20 [facility] [id number] 07/05/22 14:11 [facility] 07/05/22 07/05/22 07/05/22 13:00 13:05 13:20 Home O2 Evaluation [Oxygen] -Test Phase Resting Exercise Resting -Oxygen Delivery Room Air Room Air Room Air [Pulse Oximetry] -Pulse Oximetry (90-100 %) 95 96 95 [Pulse Rate] -Pulse Rate (60-100 beats/min) 77 105 H 80 [Evaluation] -Activity Tolerance Good [Exercise] -Ambulation Distance (feet) 1,000 -Ambulation Distance (meters) 304.78 [Charges] -Treatment Charges O2 Evaluation - Outpatient
== END 2022-07-05 12:39 | disposition home or self-care (01) ==
LOC: ANHPFT 12:38
PROVIDERS: PCP Nurse Practitioner; Visit Provider Physician Assistant
DX: R06.02 Shortness of breath (principal)
CPT/HCPCS: 94618

== ENCOUNTER 2022-08-18 06:40 | Outpatient (CLI) | payer BC, OTHER, SELFPAY ==
--- NOTE | ~2022-08-18 | MR_ITS ---
EXAMINATION: MR foot LT wo con DATE: 08/18/2022 07:39 INDICATION: Left foot injury and pain. A heavy object fell on the foot. TECHNIQUE: Magnetic resonance imaging (MRI) of the left foot was performed without intravenous contra st. COMPARISON: None FINDINGS: There is a skin marker dorsal to the second metatarsal. Bone alignment is normal. No fractu re. There is edema-like marrow signal intensity at the dorsal aspects of the bases of first and secon d metatarsals, consistent with stress reaction. There is mild osteoarthritis of first metatarsophalan geal joint and some of the midfoot joints. Lisfranc ligament is normal. The flexor and extensor tendo ns are normal. The musculature is normal. There is dorsal subcutaneous edema in the foot. IMPRESSION: 1. Mild edema-like marrow signal intensity in the dorsal aspects of the bases of the first and second metatarsals, consistent with stress reaction. 2. Mild polyarticular osteoarthritis. Reviewed, dictated and finalized at location A. IMPRESSION: 1. Mild edema-like marrow signal intensity in the dorsal aspects of the bases o f the first and second metatarsals, consistent with stress reaction. 2. Mild polyarticular osteoarthritis.
== END 2022-08-18 06:41 | disposition home or self-care (01) ==
PROVIDERS: PCP Internal Medicine; Visit Provider Internal Medicine
DX: S90.32XA Contusion of left foot, initial encounter (principal); M15.9 Polyosteoarthritis, unspecified; W20.8XXA Other cause of strike by thrown, projected or falling object, initial encounter
CPT/HCPCS: 73718

== ENCOUNTER 2023-06-04 12:12 | Outpatient (CLI) | payer OTHER, SELFPAY ==
--- NOTE | 2023-06-04 16:00 | P.METCHAL_ITS ---
Methacholine Procedure Perform Procedure Performed Methacholine Challenge Methacholine Challenge Methacholine Challenge: This is a methacholine challenge test. The test was performed and interpreted in accordance with the 2017 ERS technical standard, endorsed by the ATS, using the GLI 2012 reference equations. Testing was performed with increasing doses of nebulized methacholine following a quadrupling dosage protocol. The methacholine dose was delivered via the [employer] nebulizer using a 1-minutes tidal breathing protocol. The best post-methacholine FEV1 values were used to determine the change from the post diluent FEV1. The delivered dose of methacholine was used to calculate the provocative dose causing a 20% fall in FEV1 (PD 20). Findings: Baseline FEV1 2.53 L, 60% predicted. Post diluent FEV1 2.54 L Post 1.81 mcg methacholine FEV1 2.70 L, increased 6% Post 7.26 mcg methacholine FEV1 2.52 L, decreased 0% Post 29.03 mcg methacholine FEV1 2.28 L, decreased 10% Post 116.1 mcg methacholine FEV1 1.68 L, decreased 34% Post albuterol nebulization FEV1 2.40 L Impression: The PD20 is 52 mcg which is categorized as mild airway hyperresponsiveness. There are no prior methacholine challenge studies for comparison
== END 2023-06-04 12:13 | disposition home or self-care (01) ==
LOC: ANHPFT 12:13
PROVIDERS: PCP Nurse Practitioner; Visit Provider Internal Medicine Pulmonary Disease
DX: J45.909 Unspecified asthma, uncomplicated (principal)
CPT/HCPCS: 94070; J7674

== ENCOUNTER 2023-08-16 16:04 | Outpatient (CLI) | payer BC, OTHER, SELFPAY ==
--- NOTE | ~2023-08-16 | US_ITS ---
US scrotum doppler INDICATION: Testicular pain TECHNIQUE: Testicular sonogram utilizing grayscale and color Doppler FINDINGS: The testes are normal in size and appearance. No focal lesions are seen. The right testes measures 4.2 x 2.8 x 3.7 cm centimeters, and the left testis measures 3.7 x 3.1 x 2.5 cm cm. There is normal vascular flow to both testes. There is a possible right inguinal hernia. The right and left epididymides appear normal. There is no varicocele or hydrocele. IMPRESSION: 1. NORMAL TESTICULAR ULTRASOUND. 2: Possible right inguinal hernia. Consider correlation with CT. Reviewed, dictated and finalized at location A.
== END 2023-08-16 16:05 | disposition home or self-care (01) ==
LOC: ANHIMG 16:05
PROVIDERS: PCP Nurse Practitioner; Visit Provider Nurse Practitioner
DX: N50.819 Testicular pain, unspecified (principal)
CPT/HCPCS: 76870; 93976

== ENCOUNTER 2023-08-29 15:35 | Outpatient (CLI) | payer OTHER, SELFPAY ==
--- NOTE | ~2023-08-29 | CT_ITS ---
EXAMINATION: CT pelvis wo con DATE: 08/29/2023 16:01 INDICATION: Low abdominal pain. TECHNIQUE: Computed tomography (CT) of the pelvis was performed without intravenous contrast. Automat ed exposure control and iterative reconstruction technique were employed. The dose-length product was 1069.80 mGy-cm. COMPARISON: None FINDINGS: There is diverticulosis of the colon without evidence of diverticulitis. There are no dilat ed loops of bowel. The appendix is normal. There is a left inguinal hernia containing fat. There is m ild lumbar spondylosis. There is mild osteoarthritis of the hips. IMPRESSION: 1. Left inguinal hernia containing fat. Reviewed, dictated and finalized at location E.
== END 2023-08-29 15:36 | disposition home or self-care (01) ==
LOC: ANHIMG 15:35
PROVIDERS: PCP Nurse Practitioner; Visit Provider Nurse Practitioner
DX: K40.90 Unilateral inguinal hernia, without obstruction or gangrene, not specified as recurrent (principal); N50.819 Testicular pain, unspecified
CPT/HCPCS: 72192

== ENCOUNTER 2024-12-20 16:30 | Emergency (ER) | payer SELFPAY ==
--- NOTE | ~2024-12-20 | US_ITS ---
EXAMINATION: US venous doppler LE RT DATE: 12/20/2024 17:57 INDICATION: swelling/tightness . TECHNIQUE: Grayscale images without and with compression and Doppler images of the right lower extrem ity veins were obtained. COMPARISON: None FINDINGS: The right common femoral vein, profunda (deep) femoral vein, femoral vein, popliteal vein, peroneal v ein, posterior tibial veins, gastrocnemius vein, and greater saphenous vein are patent. IMPRESSION: Patent right lower extremity veins. No evidence of deep venous thrombosis. Reviewed, dictated and finalized at location K.
--- NOTE | ~2024-12-20 | XR_ITS ---
EXAM: XR knee RT min 4V DATE: 12/20/2024 18:03 HISTORY: pain/swelling . COMPARISON: 08/15/2021, images only. FINDINGS: Normal mineralization. No fracture or dislocation. No lytic or blastic lesion. Joint space s are maintained. No erosion or periosteal change. Soft tissues within normal limits. Moderate volume joint fluid. IMPRESSION: No acute osseous finding in the right knee. Moderate right knee joint effusion. Reviewed, dictated and finalized at location K. IMPRESSION: No acute osseous finding in the right knee. Moderate right knee susanne nt effusion.
[2024-12-20 16:32] VITALS: PULSE 96; RESP 18; TEMP 36.2; O2SAT 97
--- OUTSIDE RECORDS SUMMARY | 2024-12-20 16:33 | XMS_ITS | Clinical Summary ---
Author Organization [facility] Address [address] [place] [phone] Phone Care Team Providers Care Trial Justice Name Role Phone Randy Hammonds MD Primary Care Provider [phone] Allergies Active Allergy Reactions Criticality Noted Date Comments Penicillins Rash Low 04/29/2018 Medications clopidogrel (PLAVIX) 75 mg Tablet Take 75 mg by mouth. Active aspirin (JOSE) 325 mg tablet Take 325 mg by mouth daily. Active HYDROcodone-thuy taminophen (NORCO) 5-325 mg tablet Take 1-2 Tablets by mouth every 4 hours as needed for Pain. Max Daily Amount: 12 Tablets 20 Tablet 04/29/2018 Active chlorhexidine gluconate (PERIDEX) 0.12 % Mouthwash 15 mL by Mouth/Throat route 2 times daily. 473 mL 04/29/2018 Active Social History Tobacco Use Types Packs/Day Years Used Date Smoking Tobacco: Every Day Cigarettes Smokeless Tobacco: Never Alcohol Use Standard Drinks/Week Comments No 0 (1 standard drink = 0.6 oz pur e alcohol) Sex and Gender Information Value Date Recorded Sex Assigned at Not on file Legal Sex Male 7:19 PM PERSONNEL CLERK Gender Identity Not on file Sexual Orientation Not on file Last Filed Vital Signs Vital Sign Reading Time Taken Comments Blood Pressure 182/127 04/29/2018 10:02 PM PERSONNEL CLERK Pulse - - Temperature 36.7 C (98 F) 04/29/2018 7:56 PM PERSONNEL CLERK Respiratory Rate 18 04/29/2018 7:56 PM PERSONNEL CLERK Oxygen Saturation 99% 04/29/2018 7:56 PM PERSONNEL CLERK Inhaled Oxygen Concentration - - Weight 111.1 kg (245 lb) 04/29/2018 7:56 PM PERSONNEL CLERK Height 180.3 cm (5' 11) 04/29/2018 7:56 PM PERSONNEL CLERK Body Mass Index 34.17 04/29/2018 7:56 PM PERSONNEL CLERK Plan of Treatment Health Maintenance Due Date Last Done Comments HPV VACCINES (1 - Male 3-dose series) 1994 DTAP/TDAP/TD VACCINES (1 - Tdap) 1998 HEPATITIS B VACCINES (1 of 3 - 19+ 3-dose series) 12/1998 COLORECTAL SCREENING 2024 Colorectal Cancer Screening 2024 FIT-DNA Q 3 years 2024 FIT/FOBT Q 1 year 2024 Flex Sig/CT Colonography Q 5 years 2024 INFLUENZA VACCINE (#1) 2024 Care Teams Trial Justice Relationship Specialty Start Date End Date Randy Hammonds MD [address] [facility] [address] [place] [id number] PCP - General Internal Medicine 04/29/18
--- OUTSIDE RECORDS SUMMARY | 2024-12-20 16:33 | XMS_ITS | Clinical Summary ---
Author Organization [facility] Address [address] [place] [address] Care Team Providers Care Contract Programmer Name Role Phone Unavailable Primary Care Provider Unavailabl e Source Comments [facility],non-owned Affiliates and Associated Physician Practices is amultiple site organization consisting of ambulatory clinics and hospital sitesin [place], [place], [place] and [place]. This disclosure is being madepursuant to the Care Everywhere program and may not contain all information available regarding this patient. Last updated 18.[facility] Allergies Active Allergy Reactions Criticality Noted Date Comments Penicillins Skin Reactions Medium 11/20/2012 Social History Tobacco Use Types Packs/Day Years Used Date Smoking Tobacco: Every Day Alcohol Use Standard Drinks/Week Comments Yes 0 (1 standard drink = 0.6 oz pur e alcohol) Sex and Gender Information Value Date Recorded Sex Assigned at Not on file Legal Sex Male 6:46 PM PHOTO RETOUCHER Gender Identity Not on file Sexual Orientation Not on file Last Filed Vital Signs Vital Sign Reading Time Taken Comments Blood Pressure 141/81 11/20/2012 4:45 AM CDT Pulse 89 11/20/2012 5:00 AM CDT Temperature 36.9 C (98.4 F) 11/20/2012 3:54 AM CDT Respiratory Rate 14 11/20/2012 3:54 AM CDT Oxygen Saturation 99% 11/20/2012 3:54 AM CDT Inhaled Oxygen Concentration - - Weight 111.1 kg (245 lb) 11/20/2012 3:54 AM CDT Height 177.8 cm (5' 10) 11/20/2012 3:54 AM CDT Body Mass Index 35.15 11/20/2012 3:54 AM CDT Plan of Treatment Health Maintenance Due Date Last Done Comments COLOGUARD (AGES 45-75) - COL ON CA SCREENING 1979 COLON MONITORING 1979 COLONOSCOPY - COLON CA SCREENING 1979 CT COLONOGRAPHY - COLON CA SCREENING 1979 Colorectal Cancer Screening 1979 FIT - COLON CA SCREENING 1979 FLEX SIG - COLON CA SCREENING 1979 LIPID TESTING 1979 HIV SCREENING 1994 HEPATITIS C SCREENING 05/09/1997 DTAP/TDAP/TD VACCINES (1 - Tdap) 1998 HEPATITIS B VACCINE (1 of 3 - 19+ 3-dose series) 1998 HPV VACCINE (1 - 3-dose SCDM series) 2006 COVID-19 VACCINE ( - 2023-2 5 season) 2024 DEPRESSION SCREENING 05/07/2024 INFLUENZA VACCINE (#1) 2025 ZOSTER VACCINE (1 of 2) 2029 HIB VACCINE Aged Out No longer eligi ble based on patient's age to complete this topic MENINGOCOCCAL (Group B) VACC INE SHARED DECISION-MAKING Aged Out No longer eligibl e based on patient's age to complete this topic MENINGOCOCCAL GROUPS A/C/Y/W VACCINE Aged Out No longer eligible b ased on patient's age to complete this topic PNEUMOCOCCAL VACCINE Aged Out No long er eligible based on patient's age to complete this topic
--- OUTSIDE RECORDS SUMMARY | 2024-12-20 16:33 | XMS_ITS | Clinical Summary ---
Author Organization [facility] Address [address] [place] [address] Care Team Providers Care Canal Tender Name Role Phone Jaime Aj NP Primary Care Provider Allergies Active Allergy Reactions Criticality Noted Date Comments Penicillins Rash,Unknown High 11/20/2012 unk Medications Symbicort 160-4.5 mcg/actuation inhaler INHALE 2 PUFFS BY MOUTH EVERY 12 HOURS *RINSE MOUTH AND SPIT AFTER EACH USE* 12/11/2022 Active carvediloL (COREG) 25 mg tablet TAKE 1 TABLET BY MOUTH EVERY 12 HOURS WITH FOOD/MEAL Active ibuprofen (ADVIL,MOTRIN) 800 mg tablet TAKE 1 TABLET BY MOUTH THREE TIMES A DAY NEEDED FOR PAIN 09/22/2022 Active terazosin (HYTRIN) 5 mg capsule TAKE 1 CAPSULE BY MOUTH EVERY DAY AT BEDTIME 09/19/2022 Active topiramate (TOPAMAX) 100 mg tablet Take 1 tablet (100 mg total) by mouth 2 (two) times a day Active ergocalciferol (VITAMIN D) 50,000 unit capsule Take 1 capsule (50,000 Units total) by mouth once a week Active ezetimibe (ZETIA) 10 mg tablet Take 1 tablet (10 mg total) by mouth daily Active rosuvastatin (CRESTOR) 40 mg tablet Take 1 tablet (40 mg total) by mouth daily Active albuterol (PROAIR RESPICLICK) 90 mcg/actuation inhaler Inhale 2 puffs every 6 (six) hours as needed for wheezing Active Active Problems No known active problems Immunizations Immunization Administration Dates Next Due Influenza, Quadrivalent, Spl it, Preservative Free, Intramuscular 03/04/2021 Viss SARS-CoV-2 Monovalent Vaccination (12+ Yrs) PURPLE 05/03/2021,07/23/2020,07/02/2020 Surgical History Surgery Date Site/Laterality Comments CORONARY STENT PLACEMENT 2011 and 2016 Medical History Medical History Date Comments Asthma Myocardial infarction (HCC) Social History Tobacco Use Types Packs/Day Years Used Date Smoking Tobacco: Former Cigarettes Tobacco Cessation:Counseling Given: Not Answered Personal Safety Answer Date Recorded Getting School Help Needed Not on file 05/06 Sex and Gender Information Value Date Recorded Sex Assigned at Not on file Legal Sex Male 11:10 PM ASSEMBLER SEMICONDUCTOR Gender Identity Not on file Sexual Orientation Not on file Obstetrics History Last Filed Vital Signs Vital Sign Reading Time Taken Comments Blood Pressure 154/95 08/12/2016 4:38 PM CDT Pulse 79 04/08/2017 8:16 PM ASSEMBLER SEMICONDUCTOR Temperature 37.1 C (98.7 F) 04/08/2017 8:16 PM ASSEMBLER SEMICONDUCTOR Respiratory Rate - - Oxygen Saturation 98% 04/08/2017 8:16 PM ASSEMBLER SEMICONDUCTOR Inhaled Oxygen Concentration - - Weight 104.3 kg (230 lb) 03/14/2023 11:55 AM ASSEMBLER SEMICONDUCTOR Height 180.3 cm (5' 11) 03/14/2023 11:55 AM ASSEMBLER SEMICONDUCTOR Body Mass Index 32.08 03/14/2023 11:55 AM ASSEMBLER SEMICONDUCTOR Plan of Treatment Health Maintenance Due Date Last Done Comments Colon Cancer Screening-Colonoscopy 1979 Depression Screening 1979 Hepatitis C Screening 1979 DTaP/Tdap/Td Vaccine (1 - Tdap) 1990 Varicella Vaccines (1 of 2 - 13+ 2-dose series) 1992 Hepatitis B Screening 1997 Regular Well Visit/Exam 18-64 1997 Pneumococcal vaccine <65 (1 of 2 - PCV) 1998 HPV Vaccines (1 - 3-dose SCDM series) 2006 Covid-19 Vaccine ( - season) 2024 05/03/2021, 07/23/2020, 07/02/2020 Influenza Vaccine (#1) 2025 03/04/2021 Insurance [employer] OOS Member Subscriber Plan / Payer (Ef fective 2021-Present) Name:Jorge Guzman Relation to Subscriber:Self Name:Jorge Guzman Payer ID:[id number] (NAIC) Type:[facility] Address: [address] [facility] Care Teams Canal Tender Relationship Specialty Start Date End Date Jaime Aj NP [address] [place] [address] PCP - General Nurse Practitioner 11/16/22
[2024-12-20 16:39] VITALS: BP 237/155; PULSE 94; RESP 17; O2SAT 97
--- OUTSIDE RECORDS SUMMARY | 2024-12-20 17:13 | XMS_ITS | Clinical Summary ---
Author Organization [facility] Address [address] [place] [phone] Phone Care Team Providers Care Wharfmaster Name Role Phone Randy Hammonds MD Primary Care Provider [phone] Allergies Active Allergy Reactions Criticality Noted Date [...] on file Legal Sex Male 7:19 PM ENVIRONMENTAL CONSERVATION OFFICER Gender Identity Not on file Sexual Orientation Not on file Last Filed Vital Signs Vital Sign Reading Time Taken Comments Blood Pressure 182/127 04/29/2018 10:02 PM ENVIRONMENTAL CONSERVATION OFFICER Pulse - - Temperature 36.7 C (98 F) 04/29/2018 7:56 PM ENVIRONMENTAL CONSERVATION OFFICER Respiratory Rate 18 04/29/2018 7:56 PM ENVIRONMENTAL CONSERVATION OFFICER Oxygen Saturation 99% 04/29/2018 7:56 PM ENVIRONMENTAL CONSERVATION OFFICER Inhaled Oxygen Concentration - - Weight 111.1 kg (245 lb) 04/29/2018 7:56 PM ENVIRONMENTAL CONSERVATION OFFICER Height 180.3 cm (5' 11) 04/29/2018 7:56 PM ENVIRONMENTAL CONSERVATION OFFICER Body Mass Index 34.17 04/29/2018 7:56 PM ENVIRONMENTAL CONSERVATION OFFICER Plan of Treatment Health Maintenance Due Date [...] 2024 INFLUENZA VACCINE (#1) 2024 Care Teams Wharfmaster Relationship Specialty Start Date End Date Randy Hammonds MD [address] [facility] [address] [place] [phone] PCP - General Internal Medicine 04/29/18
--- OUTSIDE RECORDS SUMMARY | 2024-12-20 17:13 | XMS_ITS | Clinical Summary ---
Author Organization [facility] Address [address] [place] [address] Care Team Providers Care Social Work Supervisor Name Role Phone Unavailable Primary Care Provider Unavailabl e Source Comments [facility],non-owned Affiliates and Associated Physician Practices is amultiple site organization consisting of ambulatory clinics and hospital sitesin [place], [place], [place] and [place]. This disclosure is being madepursuant to the Care Everywhere program and may not contain all information available regarding this patient. Last updated 18.[facility] Allergies Active Allergy Reactions Criticality Noted Date Comments Penicillins Skin Reactions Medium 11/20/2012 Social History Tobacco Use Types Packs/Day Years Used Date Smoking Tobacco: Every Day Alcohol Use Standard Drinks/Week Comments Yes 0 (1 standard drink = 0.6 oz pur e alcohol) Sex and Gender Information Value Date Recorded Sex Assigned at Not on file Legal Sex Male 6:46 PM HEALTH TYPE TECHNICIAN Gender Identity Not on file Sexual Orientation [...]
--- OUTSIDE RECORDS SUMMARY | 2024-12-20 17:13 | XMS_ITS | Clinical Summary ---
Author Organization [facility] Address [address] [place] [address] Care Team Providers Care Development Mechanic Name Role Phone Jaime Aj NP Primary [...] Quadrivalent, Spl it, Preservative Free, Intramuscular 03/04/2021 Responsys SARS-CoV-2 Monovalent Vaccination (12+ Yrs) PURPLE 05/03/2021,07/23/2020,07/02/2020 [...] on file Legal Sex Male 11:10 PM CYTOLOGY SUPERVISOR Gender Identity Not on file Sexual Orientation Not on file Obstetrics History Last Filed Vital Signs Vital Sign Reading Time Taken Comments Blood Pressure 154/95 08/12/2016 4:38 PM CDT Pulse 79 04/08/2017 8:16 PM CYTOLOGY SUPERVISOR Temperature 37.1 C (98.7 F) 04/08/2017 8:16 PM CYTOLOGY SUPERVISOR Respiratory Rate - - Oxygen Saturation 98% 04/08/2017 8:16 PM CYTOLOGY SUPERVISOR Inhaled Oxygen Concentration - - Weight 104.3 kg (230 lb) 03/14/2023 11:55 AM CYTOLOGY SUPERVISOR Height 180.3 cm (5' 11) 03/14/2023 11:55 AM CYTOLOGY SUPERVISOR Body Mass Index 32.08 03/14/2023 11:55 AM CYTOLOGY SUPERVISOR Plan of Treatment Health Maintenance Due Date [...] 07/02/2020 Influenza Vaccine (#1) 2025 03/04/2021 Insurance [employer] OOS Member Subscriber Plan / Payer (Ef fective 2021-Present) Name:Jorge Guzman Relation to Subscriber:Self Name:Jorge Guzman Payer ID:[id number] (NAIC) Type:[facility] Address: [address] [facility] Care Teams Development Mechanic Relationship Specialty Start Date End Date Jaime Aj NP [address] [place] [address] PCP - General Nurse Practitioner 11/16/22
[2024-12-20 17:38] VITALS: BP 209/135
[2024-12-20 18:24] VITALS: PULSE 89
[2024-12-20] MEDS: LOSARTAN POTASSIUM 100 MG TABLET PO (18:24)
[2024-12-20] MEDS: ACETAMINOPHEN 500 MG TABLET 1000 MG PO (18:50)
[2024-12-20] MEDS: KETOROLAC (*BKC) 60 MG/2 ML VIAL IM (18:50)
--- NOTE | 2024-12-20 19:06 | ED_ITS ---
HPI - Extremity Problem General Chief complaint: Extremity Problem,Nontraumatic Stated complaint: R knee pain, edema Time Seen by Provider: 12/20/24 16:55 Source: patient Mode of arrival: ambulatory Limitations: no limitations History of Present Illness HPI Narrative: Patient is a 44 y/o male, with PMH of HTN, who presents to the ED with c/o R knee pain. Patient reports having pain for the past 1 week. Reports swelling in his knee, difficulty ambulating w/o pain. Has been taking ibuprofen w/o improvement. Reported worsening of pain today, which prompted his presentation. Denies recent fall or injury, but states he does kneel frequently with work. Denies numbness, fevers. Related Data Home Medications ?Medication ?Instructions ?Recorded ?Confirmed ?Last Taken ?Type aspirin 81 mg tablet,delayed 81 mg PO DAILY 05/29/19 08/07/23 03/13/22 History release (Aspir-) Allergies Allergy/AdvReac Type Severity Reaction Status Date / Time Penicillins Allergy Unknown Rash Verified 11/22/23 07:19 Review of Systems Review of Systems: All systems reviewed & are unremarkable except as noted in HPI. All systems reviewed & are unremarkable except as noted in HPI and below PMFSH Past Medical History Medical History Hypertension Coronary artery disease History of OR in 2012 status post stent to the RCA. He had stents the left and right PDA in 2018. Myocardial infarction Obstructive sleep apnea (01/20/19) Right knee DJD Hyperlipidemia Surgical History Surgical History History of coronary artery stent placement History of cardiac catheterization Family History Family History Mother Patient's mother is in good health Father Patient's father is in good health Social History Social History Social History: Surrogate medical decision maker: Jelena Mcclure, significant other. Code status: Full code. Smoking packs per day: 0.25 Smoking cigarettes per day: 5.0 Years smoked: 26 Smoking pack-years: 6.50 Smoking status: Former smoker Tobacco type: cigarettes and e-cigarettes/vaping Second hand tobacco smoke exposure: No Smoking end date: 05/07/19 Additional smoking assessment comments: Quit smoking a couple of years ago, has vaped for 2 years. Alcohol intake: current Drinks per week: 0 Alcohol use details: Social alcohol use in moderation. Substance use: never Substance use type: does not use Lack of Transportation: No Lack of Food: Never True Current Housing: I Have Housing Concerned About Future Housing: No Difficulty Paying Gas/Electric Bills: No Difficulty Paying for Meds: No Currently Unemployed: No Education: Associate Degree Difficulty w/ Childcare or Family Care: No Spiritual care concerns: No Exam Narrative: GENERAL: Well appearing, obese with BMI of 37.8, non-toxic, in no acute distress. HEAD: Normocephalic, atraumatic. RESPIRATORY: Airway patent, respirations nonlabored. CARDIOVASCULAR: Regular rate and rhythm without murmurs, rubs, or gallops. Pedal pulses are intact. MUSCULOSKELETAL: Moves all extremities. No gross deformities. Slight limited ROM of R knee d/t pain. Moderate swelling to R anterior knee. No erythema or warmth. Mild tenderness to lateral joint space. SKIN: Warm, dry, normal color. NEURO: A&O X3. Speech clear. Steady gait. No ataxic movements. PSYCHIATRIC: Appropriate mood and affect. Normal interaction. Course Vital Signs Vital signs: Vital Signs Temperature 97.2 F L 12/20/24 16:32 Pulse Rate 96 12/20/24 16:32 Respiratory Rate 18 12/20/24 16:32 Pulse Oximetry 97 12/20/24 16:32 Oxygen Delivery Room Air 12/20/24 16:32 Temperature 97.2 F L 12/20/24 16:32 Pulse Rate 93 12/20/24 22:45 Respiratory Rate 20 12/20/24 22:45 Blood Pressure 174/112 H 12/20/24 22:45 Pulse Oximetry 99 12/20/24 22:45 Oxygen Delivery Room Air 12/20/24 16:32 Procedures Joint Aspiration/Injection Joint Asp./Inject. 1: Joint Aspiration Date: 12/20/24 Joint Aspiration Time: 20:00 Time Out Performed: Yes Side of body: right Joint Aspirated: knee Ultrasound Guidance: Yes Skin Prep: other (Chlorhexidine and sterile drapes) Local Anesthetic: lidocaine 1% Amount of anesthesia used (mL): 10 Needle Size Used: 18G Fluid Obtained: bloody (and turbid) Total fluid obtained (mL): 20 Patient Tolerated Procedure: well and no complications Complications: none MDM - Extremity (Nontraumatic) MDM Narrative Medical decision making narrative: Patient neurovascularly intact. Blood pressure was notably elevated here, however patient does have history of this in reports he did not take his medications today. He was given his home oral medications with improvement of blood pressure down to the 170s. He states this is normal for him. Venous Doppler negative for DVT X-ray of right knee showing moderate joint effusion No signs of septic joint at this time. No warmth or erythema overlying skin. He does have pain with range of motion, but range of motion is preserved. No systemic signs of infection. Offered arthrocentesis in the ED verses follow-up outpatient with orthopedics. Discussed risks and benefits. Patient would like to proceed with this. This was performed in the ED by myself with approx 20ml of fluid drained. Patient reporting improvement. Fluid was sent for analysis. There is only few white blood cells seen. No organisms. Patient safe for discharge home with close outpatient follow-up. Advised to follow-up with orthopedics, discussed continue rice therapy. Advised to monitor for signs of infection. Also recommended close f/u with PCP regarding elevated blood pressures. Recommended to monitor at home and keep recording. Given strict return precautions. He is in agreement with [facility] Medical Records Attestation: I reviewed the patient's medical records. Lab Data Attestation: I reviewed the patient's lab results. Labs: Lab Results 12/20/24 Range/Units 20:07 Fluid Glucose Pending Fluid Total Protein Pending Synovial Source Rt knee syn fluid Synovial Color Red (Colorless) Synovial Appearance Bloody A (Clear) Synovial RBC TNP Synovial Nuc Cells TNP Synovial Neutrophils 35 H (0-25) % Synovial Lymphocytes 33 % Synovial Monocytes 32 % Synovial Other Cells Not Reportable Synovial Crystals None seen (None Seen) Synovial Glucose Cancelled Synovial Total Protein Cancelled Miscellaneous Test Cancelled Imaging Data Attestation: I personally reviewed and interpreted this imaging study as follows: Radiologist's impression: ITS Impressions Venous Doppler Study 12/20/24 18:03 IMPRESSION: Patent right lower extremity veins. No evidence of deep venous thrombosis. Knee X-Ray 12/20/24 18:18 IMPRESSION: No acute osseous finding in the right knee. Moderate right knee joint effusion. Discharge Plan Discharge Clinical Impression: Effusion of right knee joint, Elevated blood pressure reading with diagnosis of hypertension Patient Disposition: Home Condition: Stable Instructions: Antibiotic Form, Knee Sprain (ED), Swollen Knee Joint (ED), Joint Aspiration (DC) Additional Instructions: Follow-up with orthopedics for further evaluation. Call office on Sunday to make follow-up appointment. Keep leg elevated as much as possible. Recommend frequent icing to leg. Utilize Trung bandage for compression and support. Continue ibuprofen and Tylenol for pain. [place]acon as needed for more severe pain. Return to the ED if you experience worsening or severe pain, worsening or severe swelling, redness/warmth of right knee, fevers, recurrent fall or injury, or any other symptoms of concern. Continue your blood pressure medications as prescribed. Follow-up with your primary care doctor for continued blood pressure management. Monitor blood pressure at home and keep recording of these numbers. Patient Language: Setswana Prescriptions: New hydrocodone-acetaminophen 5-325 mg tablet 1 tablet PO Q6H PRN (Reason: pain) Qty: 10 0RF No Action aspirin [Aspir-81] 81 mg tablet,delayed release (DR/EC) 81 mg PO DAILY (DME) CPAP See Rx Instructions .Route .MEDSUPPLY Qty: 1 0RF Rx Instructions: CPAP (E0601) _13____ CMH20 EPR __1____ OXYGEN: (E0562) Heated Humidifier/Heated tubing CPAP/BIPAP Supplies/Mask (headgear/ tubing/filters) CPAP./BIPAP MASK RE-FIT (Supine position with dentures out) DX Code: Length of Need: Lifetime DME: Dilan Smith terazosin 5 mg capsule See Rx Instructions .ROUTE .COMPLEX Qty: 90 1RF Dose Instruction: TAKE 1 CAPSULE BY MOUTH EVERY DAY AT BEDTIME Rx Instructions: TAKE 1 CAPSULE BY MOUTH EVERY DAY AT BEDTIME topiramate 100 mg tablet See Rx Instructions .ROUTE .COMPLEX Qty: 90 1RF Dose Instruction: TAKE 1 TABLET BY MOUTH DAILY Rx Instructions: TAKE 1 TABLET BY MOUTH DAILY rosuvastatin 40 mg tablet 40 mg PO DAILY Qty: 90 2RF ergocalciferol (vitamin D2) 1,250 mcg (50,000 unit) capsule 1,250 mcg PO WEEKLY Qty: 4 5RF losartan 100 mg tablet See Rx Instructions .ROUTE .COMPLEX Qty: 90 1RF Dose Instruction: TAKE 1 TABLET BY MOUTH DAILY Rx Instructions: TAKE 1 TABLET BY MOUTH DAILY budesonide-formoterol [Symbicort] 160-4.5 mcg/actuation HFA aerosol inhaler See Rx Instructions .ROUTE .COMPLEX Qty: 10.2 5RF Dose Instruction: INHALE 2 PUFFS BY MOUTH EVERY 12 HOURS *RINSE MOUTH AND SPIT AFTER EACH USE* Rx Instructions: INHALE 2 PUFFS BY MOUTH EVERY 12 HOURS *RINSE MOUTH AND SPIT AFTER EACH USE* carvedilol 25 mg tablet See Rx Instructions .ROUTE .COMPLEX Qty: 180 2RF Dose Instruction: TAKE 1 TABLET BY MOUTH EVERY 12 HOURS WITH FOOD/MEAL Rx Instructions: TAKE 1 TABLET BY MOUTH EVERY 12 HOURS WITH FOOD/MEAL albuterol sulfate 90 mcg/actuation HFA aerosol inhaler 2 puff INHALATION Q4-6H PRN (Reason: Shortness Of Breath) Qty: 8.5 1RF ibuprofen 800 mg tablet See Rx Instructions .ROUTE .COMPLEX Qty: 60 2RF Dose Instruction: TAKE 1 TABLET BY MOUTH THREE TIMES A DAY NEEDED FOR PAIN Rx Instructions: TAKE 1 TABLET BY MOUTH THREE TIMES A DAY NEEDED FOR PAIN ezetimibe [Zetia] 10 mg tablet 10 mg PO DAILY Qty: 90 2RF Follow-up/Referrals: Min Dixon MD [Physician] - (ORTHOPEDICS) Jaime Aj APRN [Primary Care Provider] - Stand Alone Forms: Work/School Release IP Time of Disposition: 19:07
[2024-12-20 20:52] LABS: Color Synovial Fluid Red (Colorless); Source Synovial Fluid Rt Knee Syn Fluid
[2024-12-20 20:53] LABS: Lymphocytes Synovial Fluid 33 %; Monocytes Synovial Fluid 32 %; Neutrophils Synovial Fluid 35 % (0-25)
[2024-12-20 21:26] VITALS: BP 174/112; PULSE 93; RESP 20; O2SAT 99
[2024-12-20 22:45] VITALS: BP 174/112; PULSE 93; RESP 20; O2SAT 99
[2024-12-23 16:08] LABS: Glucose, Body Fluid 81 mg/dL (.)
== END 2024-12-20 22:47 | disposition home or self-care (01) ==
PROVIDERS: Emergency Provider Physician Assistant; PCP Nurse Practitioner
DX: M25.461 Effusion, right knee (principal); I10 Essential (primary) hypertension; I25.10 Atherosclerotic heart disease of native coronary artery without angina pectoris; I25.2 Old myocardial infarction; G47.33 Obstructive sleep apnea (adult) (pediatric); E78.5 Hyperlipidemia, unspecified
CPT/HCPCS: 20610; 73564; 82945; 84157; 89051; 89060; 93971; 96372; 99284; A9270; J1885; J2003

== ENCOUNTER 2025-01-19 14:32 | Outpatient (CLI) | payer OTHER, SELFPAY ==
--- NOTE | ~2025-01-19 | MR_ITS ---
EXAMINATION: MR knee RT wo con DATE: 01/19/2025 15:08 INDICATION: Right knee pain. TECHNIQUE: Magnetic resonance imaging (MRI) of the right knee was performed without intravenous contrast. Sequences included axial PD-weighted FS FSE, coronal PD-weighted FSE and PD-weighted FS FSE, sagittal PD-weighted FSE, and sagittal T2-weighted FS FSE. COMPARISON: Right knee radiographs 12/12/2024, MRI 07/20/2021 FINDINGS: Medial compartment: Medial meniscus is normal. The tibial cartilage is normal. There is cartilage fissuring of the posterior articular surface of femoral condyle. Lateral compartment: Lateral meniscus is normal. The lateral compartment cartilage is normal. Patellofemoral compartment: There is shallow partial-thickness cartilage loss of patellar lateral facet with mild subchondral edema-like marrow signal intensity. There is shallow partial- thickness cartilage loss of medial and lateral trochlea with mild subchondral edema-like marrow signal intensity. Ligaments and tendons: The anterior and posterior cruciate ligaments are normal. There are changes of prior sprains of medial collateral ligament and lateral collateral ligament characterized by thickening and increased signal intensity proximally. There is mild patellar tendinopathy. Fluid: There is a small knee joint effusion. There is mild prepatellar and superficial infrapatellar bursitis. IMPRESSION: 1. Mild chondrosis of medial and patellofemoral compartments. 2. Small knee joint effusion. Reviewed, dictated and finalized at location E.
== END 2025-01-19 14:33 | disposition home or self-care (01) ==
LOC: MICIMG 14:33
PROVIDERS: PCP Nurse Practitioner; Visit Provider Orthopaedic Surgery
DX: M25.461 Effusion, right knee (principal)
CPT/HCPCS: 73721